=== PATIENT | male | born 1970 | race Caucasian/White ===

== ENCOUNTER → 2017-12-02 12:14 | Outpatient (CLI) | payer BC, SELFPAY ==
[2017-12-02 14:14] LABS: Absolute Lymphocyte Count 1.85 X10^3/ul (0.83-4.51); Absolute Neutrophil Count 3.7 X10^3/uL (2.0-7.7); Basophil# 0.03 X10^3/uL; Basophil% 0.5 % (0-1); Eosinophil# 0.08 X10^3/uL; Eosinophils% 1.3 % (0-5); Hematocrit 39.5 % (40-54); Hemoglobin 12.8 g/dl (13.0-16.5); Lymphocyte # 1.85 X10^3/ul (4.0); Lymphocyte % 30.1 % (19-41); Mean Corp Hgb Conc 32.4 g/gl (32-36); Mean Corpuscular Hgb 28.1 pg (27.0-32.0); Mean Corpuscular Volume 86.6 fL (80-94); Mean Platelet Vol. 9.1 fl (6.2-12.0); Monocyte# 0.43 X10^3/uL; Neutrophil # 3.73 X10^3/uL (2.7-7.7); Neutrophil % 60.8 % (47-70); Platelet Count 244 K/mm3 (150-450); RBC Distribution Width CV 15.2 % (11.6-14.6); RBC Distribution Width SD 48.1 fl (35.1-43.9); Red Blood Count 4.56 M/mm3 (4.6-6.2); White Blood Count 6.1 K/mm3 (4.4-11.0)
[2017-12-02 14:17] LABS: POSITIVE COUNT NO; POSITIVE DIFFERENTIAL NO; POSITIVE MORPHOLOGY NO
[2017-12-02 14:29] LABS: Anion Gap 5 (5-15); BUN 15 mg/dL (7-18); BUN/Creat Ratio 15.6 RATIO (10-20); Calcium,Total 8.9 mg/dL (8.5-10.1); Chloride 106 mmol/L (98-107); Cholesterol 191 mg/dL (200); Creatinine, Serum 0.96 mg/dL (0.70-1.30); EST Glomerular Filtration Rate 89 mL/min (>60); Est Glom Filt Rate - Afr Amer 108 mL/min (>60); Glucose 84 mg/dL (74-106); High Density Lipoprotein 35 mg/dL; Potassium 3.8 mmol/L (3.5-5.1); Sodium Level 139 mmol/L (136-145); Triglycerides 296 mg/dL; Very Low Density Lipoprotein 59 mg/dL (5-40)
[2017-12-02 14:37] LABS: Hemoglobin A1c 6.1 % (4.2-6.3)
== END ==
PROVIDERS: Family Provider Family Medicine; PCP Family Medicine; Visit Provider Family Medicine
DX: E11.9 Type 2 diabetes mellitus without complications (principal)
CPT/HCPCS: 36415; 80048; 80061; 83036; 85025

== ENCOUNTER → 2018-03-07 11:41 | Outpatient (CLI) | payer BC, SELFPAY ==
--- NOTE | 2018-03-07 11:59 | RAD_ITS ---
STUDY: X-RAY - LUMBAR SPINE REASON FOR EXAM: Male, 48 years old. Low back pain. No known injury. TECHNIQUE: 5 view(s) of the lumbar spine were obtained including oblique views. COMPARISON: None FINDINGS: There is straightening of the normal lumbar lordosis. There is no substantial scoliosis. There is a normal alignment of the vertebrae. Spondylosis at the L3-L4 and L4-L5 levels. Moderate degree of disc space narrowing at the L3-L4 and L4-L5 levels. The soft tissue structures are unremarkable. RAD/L/S Spine Min 4 Views IMPRESSION: Degenerative changes of the spine, as detailed above. Electronically Signed: Jas Parry MD at 12:56 EDT Tel [phone], Service support ,
== END ==
PROVIDERS: Family Provider Family Medicine; PCP Family Medicine; Visit Provider Family Medicine
DX: M54.5 Low back pain (principal)
CPT/HCPCS: 72110

== ENCOUNTER → 2018-03-19 11:13 | Outpatient (CLI) | payer BC, SELFPAY ==
--- NOTE | 2018-03-19 11:21 | MRI_ITS ---
STUDY: MRI LUMBAR SPINE WITHOUT CONTRAST REASON FOR EXAM: Male, 48 years old. lumbar disc space narrowing, low back pain that radiates down R leg x 3 weeks TECHNIQUE: Standardized fat and water weighted pulse sequences were obtained in the sagittal and axial planes. COMPARISON: None FINDINGS: T12-L1: There is minimal displaced narrowing and endplate spondylosis. There is no significant disc herniation, spinal canal or foramina stenosis. Normal lumbar lordosis. There is no substantial scoliosis. Normal conus medullaris that terminates at the L2/3. L1-2: There is minimal displaced narrowing and endplate spondylosis. There is no significant disc herniation, spinal canal or foramina stenosis. L2-3: There is minimal displaced narrowing and endplate spondylosis. There is no significant disc herniation, spinal canal or foramina stenosis. L3-4: There is moderate disc space narrowing and endplate spondylosis. There is a mild disc bulge and facet arthropathy without significant central stenosis. There is mild bilateral foraminal stenosis. L4-5: There is moderate narrowing and endplate spondylosis. There is a moderate disc bulge and facet. Mild central canal and mild bilateral foraminal stenosis. L5-S1: There is moderate disc space narrowing and endplate spondylosis. There is a mild disc bulge asymmetric to the right. Additionally there is superiorly directed right paracentral extrusion (6 x 8 x 14mm) with severe right lateral recess narrowing. There is mild central canal stenosis. There is moderate right and mild left foraminal stenosis. There is mild facet arthropathy. Normal visualized sacral ala. Normal visualized paraspinous soft tissue structures. MRI/Spine Lumbar (Routine) IMPRESSION: L5/S1: Right extrusion with severe right lateral recess narrowing. There is moderate right foraminal stenosis Electronically Signed: Janneth Freeman MD at 10:40 EDT Tel , Service support ,
== END ==
PROVIDERS: Family Provider Family Medicine; PCP Family Medicine; Visit Provider Family Medicine
DX: M51.36 Other intervertebral disc degeneration, lumbar region (principal)
CPT/HCPCS: 72148

== ENCOUNTER 2018-03-21 07:30 | Outpatient (RCR) | payer BC, SELFPAY ==
--- NOTE | 2018-03-18 13:23 | HP.PTEVAL_ITS ---
Patient's Visit Information CHRISTIANO WILLARD is a 48 year old M referred to Physical Therapy by Dave Diaz with a diagnosis of Low back pain. Date of Evaluation: 03/14/18 Physical Therapist: Rafael Casey PT, - Visit Plan Frequency: 2x /Week Duration: 4 Weeks Plan: Flexibility to hamstrings,DLS focus neutral postion, sciatic neural glides. general lumbar ROM program. If radicular symptoms worsen, perform MDT assessment again. Modalities prn. - Subjective Subjective: This 48 y/o male presents to physical therapy with LBP.Pt reports a long history of LBP but has worsened about 3 weeks ago when he was bending over. He reports symptoms were in the entire posterior R LE at the start. Now he is reporting symptoms in the R buttocks and posterior knee. He denies any LBP currently. He denies any injection or surgery to the low back or leg. He is just finishing a prednisone prescription now and this has helped. He does report n/t in foot and toes, denies bowel/bladder incontinence, weakness, or balance issues. AGGREVATING FACTORS: bending or lifting wrong. EASING FACTORS: medications. 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 PALAPTION:unreamrkable. GAIT: normal cadance reciprocal pattern. NEURO: dermatome intact, L3/S1 DTR 1+, myotomes intact. ROM: lumbar flexion 50%, extension 75%, R LF 50%, L LF 75%. FLEXIBILITY: hamstrings severe inflexibility. MMT: quads/hams/hip/ankle 5/5. SYMMTRIES : align - Special Tests L/S Slump test left side: Negative L/S Slump test right side: Positive L/S Left Straight Leg Raise: Negative L/S Right Straight Leg Raise: Positive Lumbar Standing: Flexion - Mechanical Response: No effect Lumbar Standing: Flexion - Symptoms During Testing: Produces Lumbar Standing: Flexion - Symptoms After Testing: Worse Lumbar Standing: Extension - Mechanical Response: No effect Lumbar Standing: Extension - Symptoms During Testing: Produces Lumbar Standing: Extension - Symptoms After Testing: Worse Lumbar Lying: Extension - Mechanical Response: No effect Lumbar Lying: Extension - Symptoms During Testing: No effect Lumbar Lying: Extension - Symptoms After Testing: No effect Comments:: Unable to perform REIL w/ R SG component - Goals Goal 1:: Pt will demonstrate increased lumbar ROM. Goal Time Frame: 2-4 Weeks Goal 2:: Pt will demon correct posture in clinic without VC's. Goal Time Frame: 2-4 Weeks Goal 3:: Pt will be independent with HEP to sustain gains made in the clinic. Goal Time Frame: 2-4 Weeks Goal 4:: Patient return to function of recovery for ADL'S Goal Time Frame: 2-4 Weeks Goal 5:: Patient be d/c to prophalaxis Goal Time Frame: 4-6 Weeks - Rehabilitation Potential Physical Therapy Diagnosis: Pt is 48 y/o male with referral for low back pain. This is an acute on chronic condition. He did not appear to have a directional preference during exam. His symptoms are consistent with a postero-lateral derangement with ANR. He has activity limitations that include decreased standing and sitting tolerance. This affects his participation with work related activities. Pt will benefit from skilled PT to address the mentioned impairments to maximize functional potential. Rehabilitation Potential: Good - Anticipated Interventions Patient/Client Instruction: Educate patient on: Condition, Plan of Care For the Purpose of:: To decrease pain, To increase ROM, To improve muscle performance and motor function, To improve ability to perform ADL's, To increase tolerance to activity/condition/position, To improve ability of physical actions for home/community/work/leisure, To improve health of tissue, To decrease soft tissue restriction, To increase flexibility/ROM, To improve self management, To improve ability to perform tasks related to life management Therapeutic Exercise to Include: Strength training, Endurance training, Body mechanics, Postural training, Flexibilty training, Passive ROM, Active ROM, Dynamic Lumbar Stabilization For the Purpose of:: To decrease pain, To increase ROM, To improve muscle performance and motor function, To increase tolerance to activity/condition/ position, To improve performance and independence with ADL's, To improve ability of physical actions for home/community/work/leisure, To improve health of tissue, To decrease soft tissue restriction, To increase flexibility/ROM, To prevent re-injury, To improve ability to perform tasks related to life management TENS: Yes IF ES: Yes Ultrasound (thermal/non thermal): Yes For the Purpose of:: To decrease pain, To increase ROM, To improve nutrient delivery to tissue, To increase oxygenation perfusion, To improve health of tissue, To decrease soft tissue restriction Thank you for the opportunity to evaluate your patient. For Medicare and Medicare HMO plans, please review the plan of care and approve it. It will need to be FAXED BACK to us at [phone] for Medicare purposes. Please let me know if there are questions or concerns regarding this plan of care. Physician Signature: Date:
--- NOTE | 2018-05-14 15:54 | HP.PT.NRP ---
HP - Discharge Summary (1) - Patient Information CHRISTIANO WILLARD was seen in my office for initial evaluation on 03/14/18. The following Plan of Care was established for this patient: Initial Frequency: 2x /Week Initial Duration: 4 Weeks - Anticipated Interventions Patient/Client Instruction: Educate patient on: Condition, Plan of Care For the Purpose of:: To decrease pain, To increase ROM, To improve muscle performance and motor function, To improve ability to perform ADL's, To increase tolerance to activity/condition/position, To improve ability of physical actions for home/community/work/leisure, To improve health of tissue, To decrease soft tissue restriction, To increase flexibility/ROM, To improve self management, To improve ability to perform tasks related to life management Therapeutic Exercise to Include: Strength training, Endurance training, Body mechanics, Postural training, Flexibilty training, Passive ROM, Active ROM, Dynamic Lumbar Stabilization For the Purpose of:: To decrease pain, To increase ROM, To improve muscle performance and motor function, To increase tolerance to activity/condition/position, To improve performance and independence with ADL's, To improve ability of physical actions for home/community/work/leisure, To improve health of tissue, To decrease soft tissue restriction, To increase flexibility/ROM, To prevent re-injury, To improve ability to perform tasks related to life management TENS: Yes IF ES: Yes Ultrasound (thermal/non thermal): Yes For the Purpose of:: To decrease pain, To increase ROM, To improve nutrient delivery to tissue, To increase oxygenation perfusion, To improve health of tissue, To decrease soft tissue restriction This patient was last seen in our office 03/21/18. Pertinent comments regarding their Physical therapy will appear below: Patient seen for PT for low back pain for interventions with DLS,POSTURE,P for 3 visits then patient left [place],thus is d/c after 3visits At this point I will be discontinuing this patient from physical therapy. I would be happy to see this patient again in the future if found appropriate by the physician. Thank you! Rafael Casey, PT,
== END 2018-03-21 19:00 | disposition home or self-care (01) ==
LOC: PT 07:30
PROVIDERS: Family Provider Family Medicine; PCP Family Medicine; Visit Provider Family Medicine
DX: M54.5 Low back pain (principal)
CPT/HCPCS: 97110; 97162

== ENCOUNTER 2018-08-01 13:12 | Emergency (ER) | payer BC, SELFPAY ==
[2018-08-01 13:14] VITALS: BP 163/87; PULSE 76; RESP 18; TEMP 36.6; O2SAT 98; BMI 30.4
--- NOTE | 2018-08-01 14:01 | CT_ITS ---
STUDY: CT BRAIN WITHOUT CONTRAST REASON FOR EXAM: Male, 48 years old. 5 hour history of dizziness and nausea. RADIATION DOSAGE (If Supplied By Facility): CTDIvol = ( 60.81 ) mGy, DLP = ( 1021.47 ) mGycm TECHNIQUE: Transaxial CT imaging of the brain was performed without administration of intravenous contrast material. Individualized dose optimization techniques were used for this CT. COMPARISON: None. FINDINGS: Normal soft tissue structures. Normal calvarium. Normal size ventricles and extra-axial spaces for the patient's age. Normal white matter tracts of the cerebral hemispheres. Normal basal ganglia and thalami. Normal brainstem. Normal cerebellum. There is no intracranial hemorrhage. There are no findings of an acute ischemic infarction. Normal visualized paranasal sinuses. CT/Brain/Head without Contrast IMPRESSION: Normal unenhanced CT scan of the brain. Electronically Signed: Jas Parry MD at 15:26 EDT Tel [phone], Service support ,
--- NOTE | 2018-08-01 14:01 | EKG12_ITS ---
Test Reason : Blood Pressure : / mmHG Vent. Rate : 068 BPM Atrial Rate : 068 BPM P-R Int : 168 ms QRS Dur : 102 ms QT Int : 420 ms P-R-T Axes : 069 042 030 degrees QTc Int : 446 ms Normal sinus rhythm Normal ECG Confirmed by ISIS LIVE ([id number]), editor farm journal SIXTO HERNANDEZ ([id number]) on 08/05/2018 8:30:18 AM Referred By: FUAD Confirmed By:ISIS LIVE
[2018-08-01 14:33] LABS: Absolute Lymphocyte Count 1.62 X10^3/ul (0.83-4.51); Absolute Neutrophil Count 5.3 X10^3/uL (2.0-7.7); Basophil# 0.02 X10^3/uL; Basophil% 0.3 % (0-1); Eosinophil# 0.11 X10^3/uL; Eosinophils% 1.5 % (0-5); Hematocrit 37.7 % (40-54); Hemoglobin 12.4 g/dl (13.0-16.5); Lymphocyte # 1.62 X10^3/ul (4.0); Lymphocyte % 21.5 % (19-41); Mean Corp Hgb Conc 32.9 g/gl (32-36); Mean Corpuscular Hgb 29.1 pg (27.0-32.0); Mean Corpuscular Volume 88.5 fL (80-94); Mean Platelet Vol. 8.9 fl (6.2-12.0); Monocyte# 0.46 X10^3/uL; Monocyte% 6.1 % (0-10); Neutrophil % 70.2 % (47-70); Platelet Count 221 K/mm3 (150-450); RBC Distribution Width CV 14.9 % (11.6-14.6); RBC Distribution Width SD 47.6 fl (35.1-43.9); Red Blood Count 4.26 M/mm3 (4.6-6.2); White Blood Count 7.5 K/mm3 (4.4-11.0)
[2018-08-01 14:34] LABS: POSITIVE COUNT NO; POSITIVE DIFFERENTIAL NO; POSITIVE MORPHOLOGY NO
[2018-08-01 14:49] LABS: ALB/GLOB Ratio 0.9 RATIO (0.9-2.4); AST(SGOT) 23 U/L (15-37); Alanine Aminotransfer ALT/SGPT 40 U/L (16-61); Albumin, Serum 3.5 g/dL (3.2-5.0); Alkaline Phosphatase 58 U/L (45-117); Anion Gap 5 (5-15); BUN 14 mg/dL (7-18); BUN/Creat Ratio 13.5 RATIO (10-20); Calcium,Total 8.6 mg/dL (8.5-10.1); Chloride 106 mmol/L (98-107); Creatinine, Serum 1.04 mg/dL (0.70-1.30); EST Glomerular Filtration Rate 82 mL/min (>60); Est Glom Filt Rate - Afr Amer 99 mL/min (>60); Estimated Creatinine Clearance 85.87 ml/min; Globulin 3.9 g/dL (2.2-4.2); Glucose 102 mg/dL (74-106); Potassium 3.9 mmol/L (3.5-5.1); Protein, Total 7.4 g/dL (6.4-8.2); Sodium Level 141 mmol/L (136-145)
[2018-08-01 15:19] VITALS: BP 135/75; PULSE 74; RESP 17; O2SAT 100
[2018-08-01] MEDS: Ondansetron 4 MG/2 ML Vial IV (15:20)
[2018-08-01] MEDS: Meclizine HCl 25 MG Tablet PO ×2 (15:20→16:35)
[2018-08-01] MEDS: 0.9% Normal Saline 1,000 ML 1000 ML IV (15:20)
--- NOTE | 2018-08-01 15:49 | ED.DCSUM_ITS ---
- ER Visit Summary Date of Service: 08/01/18 Chief Complaint: Dizziness History of Present Illness: The patient is a 48 M who presents with dizziness that began today. Patient describes as feeling off balance and a spinning sensation. Patient states it is worse when he moves his head and changes position. Patient admits to some blurred vision with this. Patient denies any hearing changes or ear pain. Patient denies any headaches. Patient admits to some nausea but denies any vomiting. Patient denies any paresthesias or weakness. Patient states he was having difficulty walking due to the dizziness. Physical Examination: Vital signs are stable. Patient is afebrile. Patient is in no acute distress. Pupils are equal, round, reactive to light bilateral. Extraocular muscles are intact. There is nystagmus with right lateral gaze. Tympanic membranes are clear bilaterally. Neck is supple. Trachea is midline. There is no JVD noted. Heart was regular rate and rhythm. Lungs are clear and equal bilaterally. There is good respiratory effort noted. Abdomen is soft. Bowel sounds are normal. There is no tenderness. Cranial nerves II through XII are intact. There are no focal motor or sensory deficits noted. The remaining physical exam is within normal limits. Test Results: CT scan of the brain was obtained and was normal. EKG showed normal sinus rhythm with a rate of 68. There are no acute ST or T wave changes. This was unchanged compared to previous EKG dated 07/16/2006. CBC and basic metabolic profile were essentially within normal limits. Emergency Department Course and Treatment: Patient was given IV fluids, Zofran, and meclizine. Patient felt better on reevaluation. Patient was in the process of being discharged when he sat up and felt dizzy again. Patient was given a re peat dose of meclizine. Patient was given a prescription for meclizine. Patient was instructed to follow-up with his primary care physician in 5-7 days. Patient understood and was agreeable with the plan. All questions were answered. Disposition: Discharge home Impression: Vertigo This note was generated with [employer] software. It may contain incorrect words, spelling, and punctuation that were not noted in review of the chart prior to signing ED Disposition - Plan for ED Patient: Disposition: Home or Assisted Living Chief Complaint: Dizziness Diagnosis: Vertigo Instructions: ED Vertigo Unspecified Prescriptions: Meclizine HCl 25 mg PO Q8H PRN PRN #20 tab PRN Reason: Dizziness Referrals: Dave Diaz MD [Primary Care Provider] -
--- NOTE | 2018-08-01 16:00 | ED.RN ---
pt sat up felt dizzy. observing.
[2018-08-01 17:12] VITALS: RESP 18
== END 2018-08-01 16:39 | disposition home or self-care (01) ==
PROVIDERS: Emergency Provider Emergency Medicine; Family Provider Family Medicine; PCP Family Medicine
DX: R42 Dizziness and giddiness (principal); I10 Essential (primary) hypertension; E11.9 Type 2 diabetes mellitus without complications; E66.9 Obesity, unspecified; Z68.30 Body mass index [BMI] 30.0-30.9, adult; Z79.84 Long term (current) use of oral hypoglycemic drugs; Z79.899 Other long term (current) drug therapy
CPT/HCPCS: 70450; 80053; 84484; 85025; 93005; 96361; 96374; 99285; J7030; A4216; J2405

== ENCOUNTER → 2019-12-10 11:19 | Outpatient (CLI) | payer BC, SELFPAY ==
[2019-12-10 15:42] LABS: Absolute Lymphocyte Count 1.82 X10^3/uL (0.83-4.51); Absolute Neutrophil Count 4.8 X10^3/uL (2.0-7.7); Basophil# 0.05 X10^3/uL; Basophil% 0.7 % (0-1); Eosinophils% 1.4 % (0-5); Hematocrit 42.8 % (40-54); Hemoglobin 13.5 g/dL (13.0-16.5); Lymphocyte # 1.82 X10^3/ul (4.0); Lymphocyte % 24.9 % (19-41); Mean Corp Hgb Conc 31.5 g/dL (32-36); Mean Corpuscular Hgb 28.8 pg (27.0-32.0); Mean Corpuscular Volume 91.3 fL (80-94); Mean Platelet Vol. 9.2 fl (6.2-12.0); Monocyte# 0.54 X10^3/uL; Monocyte% 7.4 % (0-10); NRBC Flagged by Analyzer 0 % (0-5); Neutrophil # 4.77 X10^3/uL (2.7-7.7); Neutrophil % 65.2 % (47-70); Platelet Count 298 K/mm3 (150-450); RBC Distribution Width SD 53.3 fl (35.1-43.9); Red Blood Count 4.69 M/mm3 (4.6-6.2); White Blood Count 7.3 K/mm3 (4.4-11.0)
[2019-12-10 16:05] LABS: CRP 6.22 mg/L (0.0-3.0)
[2019-12-10 16:07] LABS: Erythrocyte Sedimentation Rate 13 mm/hr (0-15)
[2019-12-10 16:15] LABS: D-Dimer Quantitative (DVT/PE) <= 0.27 FEU/ug/m (0.27-0.49)
== END ==
PROVIDERS: PCP Family Medicine; Referring Provider Family Medicine; Visit Provider Family Medicine
DX: M79.606 Pain in leg, unspecified (principal)
CPT/HCPCS: 36415; 85025; 85379; 85652; 86140

== ENCOUNTER → 2019-12-25 12:56 | Outpatient (CLI) | payer BC, SELFPAY ==
--- NOTE | 2019-12-25 12:58 | ART_ITS ---
Reason For Study: Left leg pain Procedure A bilateral lower extremity continuous wave Doppler with analog waveform analysis and ankle brachial indexes. Left Segmental Pressures Left brachial= 149mmHg. Left posterior tibial artery = 194mmHg. Left dorsalis pedis artery = 171mmHg. Left digit = 165 mmHg. The left dorsalis pedis waveforms are triphasic. The left posterior tibial artery waveforms are triphasic. Right Segmental Pressures Right brachial= 152mmHg. Right posterior tibial artery = 203mmHg. Right dorsalis pedis artery = 196mmHg. Right digit = 165 mmHg. The right dorsalis pedis waveforms are triphasic. The right posterior tibial artery waveforms are triphasic. Indices The right ankle brachial index by the dorsalis pedis is 1.29. The right ankle brachial index by the posterior tibial artery is 1.34. The right digital-brachial index is 1.09. The left ankle brachial index by the dorsalis pedis is 1.13. The left ankle brachial index by the posterior tibial artery is 1.28. The left digital-brachial index is 1.09. Interpretation Summary Triphasic Doppler waveforms are noted at ankle level bilaterally. Resting ankle-brachial indices are normal bilaterally. Digital-brachial indices are normal bilaterally. There is no evidence of significant arterial occlusive disease in the lower extremities bilaterally. Ordering Physician: Dave Diaz Referring Physician: Dave Diaz Performed By: Maritza Rodgers RVT
== END ==
PROVIDERS: PCP Family Medicine; Referring Provider Family Medicine; Visit Provider Family Medicine
DX: M79.606 Pain in leg, unspecified (principal)
CPT/HCPCS: 93922

== ENCOUNTER → 2020-08-05 08:24 | Outpatient (CLI) | payer BC, SELFPAY ==
[2020-08-05 10:26] LABS: Anion Gap 4 (5-15); BUN 19 mg/dL (7-18); BUN/Creat Ratio 16.8 RATIO (10-20); Calcium,Total 9.2 mg/dL (8.5-10.1); Chloride 108 mmol/L (98-107); Creatinine, Serum 1.13 mg/dL (0.70-1.30); EST Glomerular Filtration Rate 74 mL/min (>60); Est Glom Filt Rate - Afr Amer 89 mL/min (>60); Glucose 143 mg/dL (74-106); Potassium 4.4 mmol/L (3.5-5.1); Sodium Level 140 mmol/L (136-145); Thyroid Stim Hormone (TSH) 1.98 uIU/mL (0.358-3.74)
== END ==
PROVIDERS: PCP Family Medicine; Referring Provider Family Medicine; Visit Provider Family Medicine
DX: I10 Essential (primary) hypertension (principal); E66.9 Obesity, unspecified
CPT/HCPCS: 36415; 80048; 84403; 84443

== ENCOUNTER → 2020-08-19 08:16 | Outpatient (CLI) | payer BC, SELFPAY | PROVIDERS: PCP Family Medicine; Referring Provider Family Medicine; Visit Provider Family Medicine | DX: E66.9 Obesity, unspecified (principal) | CPT/HCPCS: 36415; 84403 ==

== ENCOUNTER 2020-12-16 08:00 | Outpatient (RCR) | payer BC, SELFPAY ==
[2020-12-20] MEDS: COVID-19 VACC, MRNA(PFIZER)/PF 30 MCG/0.3 ML SYRINGE IM (13:03)
[2021-01-10] MEDS: COVID-19 VACC, MRNA(PFIZER)/PF 30 MCG/0.3 ML SYRINGE IM (12:59)
== END 2021-03-14 23:59 ==
LOC: IMMUN 08:00
PROVIDERS: PCP Family Medicine; Referring Provider Family Medicine; Visit Provider Family Medicine
DX: Z23 Encounter for immunization (principal)
CPT/HCPCS: 0001A; 0002A; 91300

== ENCOUNTER 2021-07-25 19:32 | Emergency (ER) | payer BC, SELFPAY ==
[2021-07-25 19:34] VITALS: BP 198/96; PULSE 89; RESP 18; TEMP 36.1; O2SAT 95; BMI 42.0
[2021-07-25 20:58] LABS: Absolute Lymphocyte Count 1.51 X10^3/uL (0.83-4.51); Absolute Neutrophil Count 5.9 X10^3/uL (2.0-7.7); Basophil# 0.05 X10^3/uL; Basophil% 0.6 % (0-1); Eosinophil# 0.06 X10^3/uL; Eosinophils% 0.7 % (0-5); Hematocrit 39.5 % (40-54); Hemoglobin 12.8 g/dL (13.0-16.5); Lymphocyte # 1.51 X10^3/ul (0.83-4.51); Lymphocyte % 18.3 % (19-41); Mean Corp Hgb Conc 32.4 g/dL (32-36); Mean Corpuscular Hgb 28.3 pg (27.0-32.0); Mean Corpuscular Volume 87.2 fL (80-94); Monocyte# 0.64 X10^3/uL; Monocyte% 7.8 % (0-10); NRBC Flagged by Analyzer 0 % (0-5); Neutrophil % 71.7 % (47-70); Platelet Count 258 K/mm3 (150-450); RBC Distribution Width CV 14.6 % (11.6-14.6); RBC Distribution Width SD 46.9 fl (35.1-43.9); Red Blood Count 4.53 M/mm3 (4.6-6.2); White Blood Count 8.2 K/mm3 (4.4-11.0)
[2021-07-25 21:20] LABS: Anion Gap 9 (5-15); BUN 18 mg/dL (7-18); BUN/Creat Ratio 18.6 RATIO (10-20); Calcium,Total 8.9 mg/dL (8.5-10.1); Chloride 103 mmol/L (98-107); Creatinine, Serum 0.97 mg/dL (0.70-1.30); EST Glomerular Filtration Rate 88 mL/min (>60); Est Glom Filt Rate - Afr Amer 106 mL/min (>60); Estimated Creatinine Clearance 92.12 ml/min; Glucose 168 mg/dL (74-106); Potassium 3.5 mmol/L (3.5-5.1); Sodium Level 138 mmol/L (136-145)
[2021-07-25 22:06] VITALS: BP 117/101; PULSE 80; RESP 17; O2SAT 97
[2021-07-25] MEDS: diazePAM 5 MG Tablet PO (22:33)
[2021-07-25] MEDS: 0.9% Normal Saline 1,000 ML 999 ML IV (22:34)
[2021-07-25] MEDS: Ondansetron 4 MG/2 ML Vial IV (22:44)
[2021-07-26] VITALS: BP 147/93; PULSE 70; RESP 16; O2SAT 92
--- NOTE | 2021-07-26 00:16 | EDS_ITS ---
HPI History of Present Illness Chief Complaint: Nausea/Vomiting Narrative Narrative: Patient is a 51-year-old male who states that he was at home today when he began to have a sense of dizziness which he describes as more of a spinning sensation. He reports that when this occurred he had multiple bouts of vomiting. He reports that if he closes eyes and help still the symptoms resolve. However whenever he began to walk or move he will have repeat symptoms. He states he does have a remote history of vertigo and this feels similar nature but as he cannot get the symptoms under control presents to the ER for evaluation [facility] Medical History no medical history Home Medications gabapentin 300 mg PO DAILY 08/01/18 [History Last Taken Unknown] lisinopril 5 mg PO DAILY 08/01/18 [History Last Taken Unknown] meclizine 25 mg PO Q8H PRN PRN #20 tab 08/01/18 [Rx Last Taken Unknown] metformin 500 mg PO DAILY 08/01/18 [History Last Taken Unknown] simvastatin 10 mg PO DAILY 08/01/18 [History Last Taken Unknown] diazepam [Valium] 5 mg PO TID PRN #15 tab 07/26/21 [Rx Last Taken Unknown] ondansetron HCl [Zofran] 4 mg PO Q8H PRN #21 tab 07/26/21 [Rx Last Taken Unknown] Allergy/AdvReac Type Severity Reaction Status Date / Time Penicillins [PCN] Allergy Hives Verified 07/25/21 19:35 Family History no significant family his Surgical History no surgical history Social History Smoking Status: Never smoker [facility] ED Constitutional Constitutional ED: Denies chills or fever(s) Eyes Eyes: Reports change in vision ENT ENT ED: Denies sore throat Cardiovascular Cardiovascular: Denies chest pain Respiratory/Chest Respiratory/Chest: Denies cough or dyspnea Gastrointestinal Gastrointestinal: Reports nausea and vomiting; Denies abdominal pain or diarrhea Genitourinary Genitourinary ED: Denies dysuria Musculoskeletal Musculoskeletal: Denies myalgias Integumentary Denies rash Neurologic Neurologic: Reports other Details: Positive dizziness ; Denies headache(s) Hematologic/Lymphatic Hematologic/Lymphatic: Denies easy bleeding or easy bruising EXAM Physical Exam Const Vital Signs: 07/25/21 19:34 07/25/21 22:06 07/26/21 00:00 Temperature 96.9 F L Temperature Source Temporal Pulse Rate 89 80 70 Respiratory Rate 18 17 16 Blood Pressure 198/96 H 117/101 H 147/93 H Blood Pressure Mean 130 106 111 Pulse Ox 95 97 92 Oxygen Delivery Method Room Air Room Air Room Air Positive well nourished and well developed General Appearance ED: well developed HEENT Reports TM's clear and moist mucous membranes Tympanic Membrane ED: Yes TM's clear Eyes PERRL and EOMs intact bilaterally Neck supple Neck Narrative: No meningeal signs Resp normal respiratory effort and clear to auscultation bilaterally Cardio regular rate and regular rhythm GI non-tender, non-distended and no masses Auscultation: normoactive bowel sounds Palpation: soft Extremity normal to inspection Neuro oriented x3 and CN's II-XII intact bilaterally Neuro Narrative: There is mild horizontal nystagmus noted with positive Hallpike Lela exam. Otherwise cranial nerves II through XII are grossly intact with no focal neurologic deficit. No pronator drift no dysmetria no truncal ataxia Sensorium / Orientation: alert Motor Exam: strength 5/5 throughout Psych mental status grossly normal Skin no rashes or lesions noted MDM MDM MDM Narrative Medical decision making narrative: Patient presented to the ER with a nonfocal neuro exam and history and exam findings consistent with peripheral vertigo. We discussed a possible head CT but patient states he had this at his last bout of vertigo and this was normal and therefore does not want a repeat CT obtained. Patient's blood work revealed no clinically significant finding and after IV hydration Zofran and Valium he reported feeling better, patient was ambulated and can walk with a steady gait and therefore be discharged at this time. Lab Data Attestation: I reviewed the patient's lab results. Labs: Laboratory Results - last 24 hr 07/25/21 07/25/21 20:34 20:34 WBC 8.2 RBC 4.53 L Hgb 12.8 L Hct 39.5 L MCV 87.2 MCH 28.3 MCHC 32.4 RDW Std Deviation 46.9 H RDW Coeff of Maninder 14.6 Plt Count 258 MPV 9.0 Immature Gran % (Auto) 0.900 Neut % (Auto) 71.7 H Lymph % (Auto) 18.3 L Karnes % (Auto) 7.8 Eos % (Auto) 0.7 Baso % (Auto) 0.6 Absolute Neuts (auto) 5.9 Absolute Lymphs (auto) 1.51 Nucleated RBC % 0 Sodium 138 Potassium 3.5 Chloride 103 Carbon Dioxide 26.0 Anion Gap 9 BUN 18 Creatinine 0.97 Estim Creat Clear Calc 92.12 Est GFR (MDRD) Af Amer 106 Est GFR (MDRD) Non-Af 88 BUN/Creatinine Ratio 18.6 Glucose 168 H Calcium 8.9 Discharge Plan Triage Chief Complaint: Nausea/Vomiting ED Provider: Chevy Moreno Dx/Rx/DC Orders Clinical Impression: Peripheral vertigo, unspecified Prescriptions: New ondansetron HCl [Zofran] 4 mg tablet 4 mg PO Q8H PRN (Reason: nausea and vomiting) Qty: 21 RF: 0 diazepam [Valium] 5 mg tablet 5 mg PO TID PRN (Reason: dizziness or vertigo) Qty: 15 RF: 0 No Action metformin 500 MG tablet 500 mg PO DAILY RF: 0 simvastatin 10 MG tablet 10 mg PO DAILY RF: 0 gabapentin 300 MG capsule 300 mg PO DAILY RF: 0 lisinopril 5 MG tablet 5 mg PO DAILY RF: 0 meclizine 25 MG tablet 25 mg PO Q8H PRN PRN (Reason: Dizziness) Qty: 20 RF: 0 Primary Care Provider: Dave Diaz Referrals: Dave Diaz MD [Primary Care Provider] - Disposition Disposition: Home, Self Care
== END 2021-07-26 00:34 | disposition home or self-care (01) ==
PROVIDERS: Emergency Provider Emergency Medicine; PCP Family Medicine
DX: H81.399 Other peripheral vertigo, unspecified ear (principal)
CPT/HCPCS: 80048; 85025; 96361; 96374; 99284; J7030; A4216; J2405

== ENCOUNTER → 2021-08-22 06:32 | Outpatient (CLI) | payer BC, SELFPAY ==
--- NOTE | 2021-08-22 06:35 | MRI_ITS ---
EXAM: MR HEAD WITHOUT AND WITH INTRAVENOUS CONTRAST, INTERNAL AUDITORY CANAL PROTOCOL : 1970 CLINICAL INDICATION: DIZZINESS, HEARING LOSS TECHNIQUE: Multiplanar and multisequence MR images of the internal auditory canal were obtained without and with intravenous contrast. This report was created using [employer] report generation technology. CONTRAST: IV 26ml Dotarem COMPARISON: None. FINDINGS: CRANIAL NERVES: Unremarkable. No mass. No abnormal enhancement. COCHLEA AND SEMICIRCULAR CANALS: Unremarkable. CEREBELLOPONTINE ANGLES: Unremarkable. No mass. BRAIN AND EXTRA-AXIAL SPACES: Unremarkable as visualized. No intra- or extra-axial hemorrhage. No intracranial mass or mass effect. There is preservation of the alicea/white matter interface. Posterior fossa structures are unremarkable. Ventricles are appropriate for age. No hydrocephalus. Basal cisterns are patent. No abnormal contrast enhancement. BONES/JOINTS: Unremarkable. No discrete lytic or blastic abnormalities. SINUSES: Unremarkable as visualized. Clear. MASTOID AIR CELLS: Unremarkable as visualized. Clear. ORBITS: Unremarkable as visualized. Both globes, extraocular muscles, optic nerves and retrobulbar fat appear unremarkable. MRI/Brain W/WO Contrast IMPRESSION: Negative exam. at 0822 Reported and signed by: Landon Tejada MD Electronically Signed: Landon Tejada MD at 8:21 EST Tel , Service support ,
== END ==
PROVIDERS: PCP Family Medicine; Referring Provider Otolaryngology; Visit Provider Otolaryngology
DX: R42 Dizziness and giddiness (principal); H90.3 Sensorineural hearing loss, bilateral
CPT/HCPCS: 70553; A9575

== ENCOUNTER 2022-04-11 21:22 | Observation (INO) | payer BC, SELFPAY ==
[2022-04-11 21:23] VITALS: BP 123/97; PULSE 136; RESP 14; TEMP 36.4; O2SAT 96; BMI 43.6
[2022-04-11 21:47] VITALS: BP 149/97; PULSE 133; RESP 16; O2SAT 95
--- NOTE | 2022-04-11 21:59 | EKG12_ITS ---
Test Reason : palptations Blood Pressure : / mmHG Vent. Rate : 127 BPM Atrial Rate : 308 BPM P-R Int : 000 ms QRS Dur : 092 ms QT Int : 318 ms P-R-T Axes : 000 046 042 degrees QTc Int : 462 ms Atrial flutter with variable A-V block Abnormal ECG Confirmed by NYA DEAN, JAD ([id number]), features editor GARRETT WRIGHT ([id number]) on 04/14/2022 9:33:34 AM Referred By: Horace Sifuentes Confirmed By:JAD FAY MD
[2022-04-11 22:14] LABS: Absolute Lymphocyte Count 2.35 X10^3/uL (0.83-4.51); Absolute Neutrophil Count 4.2 X10^3/uL (2.0-7.7); Basophil# 0.05 X10^3/uL; Basophil% 0.7 % (0-1); Eosinophil# 0.13 X10^3/uL; Eosinophils% 1.8 % (0-5); Hematocrit 40.7 % (40-54); Hemoglobin 13.3 g/dL (13.0-16.5); Lymphocyte # 2.35 X10^3/ul (0.83-4.51); Lymphocyte % 32.1 % (19-41); Mean Corp Hgb Conc 32.7 g/dL (32-36); Mean Corpuscular Hgb 28.8 pg (27.0-32.0); Mean Corpuscular Volume 88.1 fL (80-94); Mean Platelet Vol. 9.2 fl (6.2-12.0); Monocyte# 0.56 X10^3/uL; Monocyte% 7.7 % (0-10); NRBC Flagged by Analyzer 0 % (0-5); Neutrophil # 4.19 X10^3/uL (2.7-7.7); Neutrophil % 57.3 % (47-70); Platelet Count 270 K/mm3 (150-450); RBC Distribution Width CV 15.2 % (11.6-14.6); RBC Distribution Width SD 48.6 fl (35.1-43.9); Red Blood Count 4.62 M/mm3 (4.6-6.2); White Blood Count 7.3 K/mm3 (4.4-11.0)
[2022-04-11] MEDS: dilTIAZem 25 MG/5 ML Vial 20 MG IV BOLUS (22:21)
[2022-04-11 22:33] LABS: ALB/GLOB Ratio 0.9 RATIO (0.9-2.4); AST(SGOT) 26 U/L (15-37); Alanine Aminotransfer ALT/SGPT 36 U/L (16-61); Albumin, Serum 3.6 g/dL (3.2-5.0); Alkaline Phosphatase 61 U/L (45-117); Anion Gap 7 (5-15); BUN 18 mg/dL (7-18); BUN/Creat Ratio 16.4 RATIO (10-20); Chloride 108 mmol/L (98-107); EST Glomerular Filtration Rate 75 mL/min (>60); Est Glom Filt Rate - Afr Amer 91 mL/min (>60); Estimated Creatinine Clearance 80.34 ml/min; Globulin 3.9 g/dL (2.2-4.2); Glucose 199 mg/dL (74-106); Potassium 3.6 mmol/L (3.5-5.1); Protein, Total 7.5 g/dL (6.4-8.2); Sodium Level 142 mmol/L (136-145); Troponin-I HS 16 pg/mL (3.0-78.0)
--- NOTE | 2022-04-11 22:43 | EX.ED.DYSGE1 ---
HPI History of Present Illness Chief Complaint: Palpitations Informant: patient and spouse/S.O. Narrative Narrative: Patient presents directly ED after returning from [place] to direction of his PCP Dr. Diaz for treatment. Reported palpitations started 3 days ago at rest. The following day worsens had a near syncopal episode with exertional dyspnea. He has been having cough for 4 days. Denies fever. Denies leg swelling or cramping. Symptoms worsening where he went to the ED yesterday in [place]. Reported had atrial fibrillation/atrial flutter. He was given IV Lopressor and tried Cardizem and placed on a drip. It reported unable to control this. There is discussion of cardioversion however he declined this. He states his blood pressure was stable. He did not want to be hospitalized therefore signed out AGAINST MEDICAL ADVICE. He was placed on Cardizem 120 mg twice daily along with Eliquis twice daily. Today he is taking Cardizem 3x2 direction of his PCP as last dosing was at 4 PM along with taking his Eliquis at the same time. He returned in town literally an hour prior to arrival to the ED. Reviewing lab work on his phone normal CBC troponin and electrolytes. There was no D-dimer. Prior similar symptoms: No PFSH PFSH Medical History Diabetes HTN (hypertension) Hyperlipidemia Home Medications gabapentin 300 mg capsule 300 mg PO DAILY 08/01/18 [History Last Taken Unknown] lisinopril 5 mg tablet 5 mg PO DAILY 08/01/18 [History Last Taken Unknown] meclizine 25 mg tablet 25 mg PO Q8H PRN PRN Dizziness #20 tabs 08/01/18 [Rx Last Taken Unknown] metformin 500 mg tablet 500 mg PO DAILY 08/01/18 [History Last Taken Unknown] simvastatin 10 mg tablet 10 mg PO DAILY 08/01/18 [History Last Taken Unknown] diazepam 5 mg tablet (Valium) 5 mg PO TID PRN dizziness or vertigo #15 tabs 07/26/21 [Rx Last Taken Unknown] ondansetron HCl 4 mg tablet (Zofran) 4 mg PO Q8H PRN nausea and vomiting #21 tabs 07/26/21 [Rx Last Taken Unknown] Allergy/AdvReac Type Severity Reaction Status Date / Time Penicillins [PCN] Allergy Hives Verified 04/11/22 21:23 Social History Smoking Status: Never smoker ROS ROS ED Constitutional Constitutional ED: Denies chills, fever(s) or sweats Eyes Eyes: Denies change in vision ENT ENT ED: Denies dysphagia or sore throat Cardiovascular Cardiovascular: Reports palpitations and racing heartbeat; Denies chest pain or leg edema Respiratory/Chest Respiratory/Chest: Reports cough; Denies dyspnea or dyspnea on exertion Gastrointestinal Gastrointestinal: Denies abdominal pain, diarrhea, nausea or vomiting Genitourinary Genitourinary ED: Denies dysuria, hematuria or urinary frequency Musculoskeletal Musculoskeletal: Denies back pain, extremity pain or neck pain Integumentary Denies rash or wounds Neurologic Neurologic: Denies headache(s), paresthesias or weakness EXAM Physical Exam Const Vital Signs: 04/11/22 21:23 04/11/22 21:47 04/11/22 21:56 Temperature 97.5 F L Temperature Source Temporal Pulse Rate 136 H 133 H Respiratory Rate 14 16 Respiratory Effort Normal Blood Pressure 123/97 H 149/97 H Blood Pressure Mean 105 114 Pulse Ox 96 95 Oxygen Delivery Method Room Air Room Air 04/11/22 23:04 04/11/22 23:48 04/12/22 00:05 Temperature 98.9 F Temperature Source Temporal Pulse Rate 109 H 98 106 H Respiratory Rate 118 H 20 H 16 Respiratory Effort Blood Pressure 118/81 H 146/85 H 128/78 H Blood Pressure Mean 93 105 94 Pulse Ox 95 94 93 Oxygen Delivery Method Room Air Room Air Room Air Positive well nourished and well developed General Appearance ED: well developed and NAD HEENT Reports moist mucous membranes normocephalic and atraumatic Eyes PERRL, EOMs intact bilaterally and conjunctivae normal General Eye ED: Yes normal appearance of both eyes Neck no lymphadenopathy and supple General: Negative for tenderness Chest Wall Chest: Negative for tenderness Resp normal respiratory effort and normal air movement Effort and Inspection: symmetric chest movement; Negative for respiratory distress Cardio no murmurs Rate: tachycardic Rhythm: abnormal rhythm Peripheral Pulses: pulses 2+ throughout GI normal to inspection, nondistended, normoactive bowel sounds and non-tender Palpation: Negative for guarding or rebound tenderness present Back/Spine no CVA tenderness and no thoracic nor lumbar tenderness Extremity normal to inspection General Extremety ED: Negative for edema or tenderness General Extremity: Negative for edema Neuro oriented x3 and no sensory deficits noted Sensorium / Orientation: awake and alert Skin no rashes or lesions noted and no wounds MDM MDM MDM Narrative Medical decision making narrative: EKG A. fib with RVR. Heart rates 130s to 140s on exam. Is given IV Cardizem of 20 mg. Heart rate down to 100s. Blood pressure down in the low 100s systolic. Gentle fluids started. 5 mg/h Cardizem drip with better control blood pressure improved. Laboratory studies white count 7.3 hemoglobin 13.3 potassium 3.6. Troponin negative. He is low risk Wells criteria for PE with his recent travel and obtain a D-dimer returning negative. 1 view chest x-ray reviewed by myself shows no acute process. Heart rate much better controlled. He status post his Eliquis at 4 PM. I will discuss with hospitalist for admission. 0000: Spoke with Dr. Bates for admission. Lab Data Attestation: I reviewed the patient's lab results. Labs: Laboratory Results - last 24 hr 04/11/22 04/11/22 04/11/22 22:00 22:00 22:00 WBC 7.3 RBC 4.62 Hgb 13.3 Hct 40.7 MCV 88.1 MCH 28.8 MCHC 32.7 RDW Std Deviation 48.6 H RDW Coeff of Maninder 15.2 H Plt Count 270 MPV 9.2 Immature Gran % (Auto) 0.400 Neut % (Auto) 57.3 Lymph % (Auto) 32.1 [place] % (Auto) 7.7 Eos % (Auto) 1.8 Baso % (Auto) 0.7 Absolute Neuts (auto) 4.2 Absolute Lymphs (auto) 2.35 Nucleated RBC % 0 PT 14.3 INR 1.1 APTT 41.5 H D-Dimer Quant (PE/DVT) < 0.27 L Sodium 142 Potassium 3.6 Chloride 108 H Carbon Dioxide 27.0 Anion Gap 7 BUN 18 Creatinine 1.10 Estim Creat Clear Calc 80.34 Est GFR (MDRD) Af Amer 91 Est GFR (MDRD) Non-Af 75 BUN/Creatinine Ratio 16.4 Glucose 199 H Calcium 9.0 Total Bilirubin 0.50 AST 26 ALT 36 Alkaline Phosphatase 61 Troponin I High Sens 16 Total Protein 7.5 Albumin 3.6 Globulin 3.9 Albumin/Globulin Ratio 0.9 Radiography Chest X-Ray - ED: 1 View and Read by ED Physician Diagnostic Testing: Clinical Impression(s) from Imaging Studies Chest X-Ray 04/11/22 23:03 IMPRESSION: No radiographic evidence of acute cardiopulmonary disease. Electronically Signed: Tricia Corado MD at 0:12 EDT , EKG Initial EKG: Attestation: I personally reviewed and interpreted this EKG as follows: Comments: Atrial fibrillation, rate of 127, no ST or T wave changes. Discharge Plan Dx/Rx/DC Orders Clinical Impression: Atrial fibrillation with RVR, History of diabetes mellitus, Upper respiratory infection Disposition Disposition: Acute Care [facility]
[2022-04-11 22:44] LABS: International Normalized Ratio 1.1; Prothrombin Time (Protime)PT. 14.3 SECONDS (11.7-14.9)
[2022-04-11 22:45] LABS: Partial Thromboplast Time 41.5 Seconds (24.1-36.2)
[2022-04-11 22:47] LABS: D-Dimer Quantitative (DVT/PE) < 0.27 FEU/ug/m (0.27-0.49)
--- NOTE | 2022-04-11 23:03 | RAD_ITS ---
EXAM: XR CHEST, 1 VIEW CLINICAL INDICATION: cough TECHNIQUE: Frontal view of the chest. This report was created using [employer] report generation technology. COMPARISON: None. FINDINGS: LUNGS AND PLEURAL SPACES: Unremarkable. No consolidation or edema. No pneumothorax. No effusion. HEART: Unremarkable. Cardiac silhouette not enlarged. MEDIASTINUM: Central airways and mediastinal contour are unremarkable. BONES/JOINTS: Mild thoracic spondylosis or ligamentous ossification. SOFT TISSUES: Unremarkable. RAD/Chest 1 View (Portable) IMPRESSION: No radiographic evidence of acute cardiopulmonary disease. Electronically Signed: Tricia Corado MD at 0:12 EDT ,
[2022-04-11 23:04] VITALS: BP 118/81; PULSE 109; RESP 118; O2SAT 95
[2022-04-11] MEDS: 0.9% Normal Saline 1,000 ML 30 ML IV (23:04)
[2022-04-11 23:48] VITALS: BP 146/85; PULSE 98; RESP 20; O2SAT 94
[2022-04-12] VITALS (17 sets, daily range): BP systolic 90–147; BP diastolic 65–95; PULSE 72–121; RESP 14–22; TEMP 36.3–37.2; O2SAT 86–100; BMI 43.7
--- NOTE | 2022-04-12 00:11 | PCM.HP.STD ---
HPI - General General Date of Admission: 04/12/22 Date of Service: 04/12/22 Chief Complaint: Palpitations HPI Narrative Patient is a 52-year-old male with a significant history of obesity; hyperlipidemia; hypertension; diabetes mellitus; and rheumatoid arthritis who presents emergency department with 3-day history of persistent palpitations. His symptoms started about 3 days ago while [facility]. He went to emergency department; where he was given metoprolol and Cardizem drip. Because he and his was making plans to come back to [facility] where he lives he talked to his PCP, Dr. Diaz and patient was advised to seek further care at [place]. He was prescribed p.o. Cardizem pills and Eliquis at [facility] ED. Subsequently when patient arrived from [place] he came to [facility] ED where he was still found to be in A. fib and was started on a Cardizem drip. Associated with his symptoms is dyspnea on exertion; nonproductive cough and near syncope. [facility] Medical History Diabetes History of diabetes mellitus HTN (hypertension) Hyperlipidemia Home Medications gabapentin 300 mg capsule 300 mg PO DAILY 08/01/18 [History Last Taken Unknown] lisinopril 5 mg tablet 5 mg PO DAILY 08/01/18 [History Last Taken Unknown] meclizine 25 mg tablet 25 mg PO Q8H PRN PRN Dizziness #20 tabs 08/01/18 [Rx Last Taken Unknown] metformin 500 mg tablet 500 mg PO DAILY 08/01/18 [History Last Taken Unknown] simvastatin 10 mg tablet 10 mg PO DAILY 08/01/18 [History Last Taken Unknown] diazepam 5 mg tablet (Valium) 5 mg PO TID PRN dizziness or vertigo #15 tabs 07/26/21 [Rx Last Taken Unknown] ondansetron HCl 4 mg tablet (Zofran) 4 mg PO Q8H PRN nausea and vomiting #21 tabs 07/26/21 [Rx Last Taken Unknown] Allergy/AdvReac Type Severity Reaction Status Date / Time Penicillins [PCN] Allergy Hives Verified 04/11/22 21:23 Family History Other CVA (cerebral vascular accident) Heart disease Surgical History (Updated 04/12/22 @ 03:[address] Manish Bates MD) Hx of cataract surgery Social History Smoking Status: Never smoker ROS ROS Narrative Pertinent positives and pertinent negatives as noted in HPI. All other systems were reviewed and are negative. Vital Signs Vital Signs Vital Signs: 04/11/22 21:23 04/11/22 21:47 04/11/22 21:56 Temperature 97.5 F L Temperature Source Temporal Pulse Rate 136 H 133 H Respiratory Rate 14 16 Respiratory Effort Normal Blood Pressure 123/97 H 149/97 H Blood Pressure Mean 105 114 Pulse Ox 96 95 Oxygen Delivery Method Room Air Room Air 04/11/22 23:04 04/11/22 23:48 04/12/22 00:05 Temperature 98.9 F Temperature Source Temporal Pulse Rate 109 H 98 106 H Respiratory Rate 118 H 20 H 16 Respiratory Effort Blood Pressure 118/81 H 146/85 H 128/78 H Blood Pressure Mean 93 105 94 Pulse Ox 95 94 93 Oxygen Delivery Method Room Air Room Air Room Air Weight Weight: 134 kg Body Mass Index (BMI) 43.6 Physical Exam Narrative Physical exam: General: Well-nourished, well-developed. Head: Normocephalic, atraumatic, no tenderness Eyes: Vision is grossly intact. EOMI ENT, no trauma, moist mucous membranes, no rhinorrhea Neck: Nontender, full range of motion, no spinal tenderness, deformities, step-off CVS: Tachycardia. Irregularly irregular rate and rhythm. S1-S2 present. No murmur, gallop or rub. Respiratory : clear to auscultation bilaterally, chest wall nontender, no wheezing Abdomen: Soft, nontender, nondistended, normal bowel sounds, no masses : Deferred Back: Nontender, no CVA tenderness, no midline spinal tenderness, deformities, step-offs Extremities: Nontender full range of motion, no trauma Skin: Normal color, no trauma, abrasions Neuro: Alert, oriented, cranial nerves II through XII grossly intact. Psychiatry: Normal mood. Normal affect. Not depressed. Not anxious. Results Lab / Micro Data Result Diagrams: 04/11/22 22:00 04/11/22 22:00 Labs: Laboratory Results - last 24 hr 04/11/22 22:00: WBC 7.3, RBC 4.62, Hgb 13.3, Hct 40.7, MCV 88.1, MCH 28.8, MCHC 32.7, RDW Std Deviation 48.6 H, RDW Coeff of Maninder 15.2 H, Plt Count 270, MPV 9.2, Immature Gran % (Auto) 0.400, Neut % (Auto) 57.3, Lymph % (Auto) 32.1, Delta % (Auto) 7.7, Eos % (Auto) 1.8, Baso % (Auto) 0.7, Absolute Neuts (auto) 4.2, Absolute Lymphs (auto) 2.35, Nucleated RBC % 0 04/11/22 22:00: PT 14.3, INR 1.1, APTT 41.5 H, D-Dimer Quant (PE/DVT) < 0.27 L 04/11/22 22:00: Sodium 142, Potassium 3.6, Chloride 108 H, Carbon Dioxide 27.0, Anion Gap 7, BUN 18, Creatinine 1.10, Estim Creat Clear Calc 80.34, Est GFR (MDRD) Af Amer 91, Est GFR (MDRD) Non-Af 75, BUN/Creatinine Ratio 16.4, Glucose 199 H, Calcium 9.0, Total Bilirubin 0.50, AST 26, ALT 36, Alkaline Phosphatase 61, Troponin I High Sens 16, Total Protein 7.5, Albumin 3.6, Globulin 3.9, Albumin/Globulin Ratio 0.9 Micro: Microbiology 04/11/22 22:05 Nasal Secretion SARS-CoV-2 Antigen (Rapid) - Final Assessment & Plan Assessment/Plan (1) Atrial fibrillation with RVR: (2) History of diabetes mellitus: PLAN: Plan Atrial fibrillation with rapid ventricular response. EKG was viewed and personally interpreted. EKG showed A. fib with RVR Place on PCU on telemetry Obtain echo High [id number] 2 score. Continue Eliquis started from outside hospital ED. Cardizem drip was started emergency department and continued. Hold p.o. Cardizem recently started. Potassium on presentation was 3.8. P.o. potassium ordered. Check magnesium Review of records show that last TSH on file was on 08/05/2020. TSH at that time was 1.98. TSH ordered. Chest x-ray was visualized and independently interpreted. Chest x-ray with no acute cardiopulmonary process. Per patient's request cardiology consult placed. Diabetes mellitus Patient with hyperglycemia on presentation Monitor Accu-Cheks Correction scale insulin ordered. Hypertension On presentation blood pressure mostly within goal. With patient placed on Cardizem drip blood pressures became soft. Hold home blood pressure medication at this time. Trend blood pressure. Upper respiratory tract infection On presentation rapid COVID antigen negative. PRN Tessalon Perles ordered DVT prophylaxis Not indicated as patient is on Eliquis. Charges/Coding Visit Charges Inpatient E&M: 78712 Init Hosp L3
[2022-04-12] MEDS: Potassium Chloride Oral Tablet 20 MEQ 40 MEQ PO (03:33)
[2022-04-12 03:49] LABS: Absolute Lymphocyte Count 2.17 X10^3/uL (0.83-4.51); Absolute Neutrophil Count 3.4 X10^3/uL (2.0-7.7); Basophil# 0.05 X10^3/uL; Basophil% 0.8 % (0-1); Eosinophil# 0.16 X10^3/uL; Eosinophils% 2.5 % (0-5); Hematocrit 38.7 % (40-54); Hemoglobin 12.5 g/dL (13.0-16.5); Lymphocyte # 2.17 X10^3/ul (0.83-4.51); Mean Corp Hgb Conc 32.3 g/dL (32-36); Mean Corpuscular Hgb 28.7 pg (27.0-32.0); Mean Corpuscular Volume 88.8 fL (80-94); Mean Platelet Vol. 9.1 fl (6.2-12.0); Monocyte# 0.61 X10^3/uL; Monocyte% 9.6 % (0-10); NRBC Flagged by Analyzer 0 % (0-5); Neutrophil # 3.37 X10^3/uL (2.7-7.7); Neutrophil % 52.8 % (47-70); Platelet Count 238 K/mm3 (150-450); RBC Distribution Width SD 49.1 fl (35.1-43.9); Red Blood Count 4.36 M/mm3 (4.6-6.2); White Blood Count 6.4 K/mm3 (4.4-11.0)
[2022-04-12 04:04] LABS: Anion Gap 6 (5-15); BUN 16 mg/dL (7-18); BUN/Creat Ratio 16.5 RATIO (10-20); Calcium,Total 8.6 mg/dL (8.5-10.1); Chloride 110 mmol/L (98-107); Creatinine, Serum 0.97 mg/dL (0.70-1.30); EST Glomerular Filtration Rate 87 mL/min (>60); Est Glom Filt Rate - Afr Amer 105 mL/min (>60); Estimated Creatinine Clearance 91.11 ml/min; Glucose 130 mg/dL (74-106); Potassium 3.7 mmol/L (3.5-5.1); Sodium Level 143 mmol/L (136-145)
[2022-04-12 04:13] LABS: Thyroid Stim Hormone (TSH) 3.84 uIU/mL (0.358-3.74)
--- NOTE | 2022-04-12 05:55 | ECHOCS_ITS ---
Reason For Study: ATRIAL FIB-FLUTTER Procedure This was a 2D Doppler, Color Flow transthoracic echocardiogram. The study was technically difficult. Exam performed portable in ICU/CCU. Left Ventricle Normal left ventricle. The estimated ejection fraction is 55-60 %. Right Ventricle Normal right ventricle. Normal systolic function. Atria Normal left atrium. Normal right atrium. Mitral Valve There is mild mitral annular calcification. No mitral valve insufficiency. Tricuspid Valve Normal tricuspid valve. No tricuspid valve insufficiency. Aortic Valve Normal aortic valve. Pulmonic Valve The pulmonic valve is not well visualized. Great Vessels Normal aortic root. Pericardium/Pleural No pericardial effusion. Medication Diluted definity 2ml given slow IV push to enhance endocardial definition. MMode/2D Measurements & Calculations LVIDd: 4.9 cm IVSd: 1.0 cm Ao root diam: 3.1 cm LVIDs: 3.3 cm LVPWd: 1.0 cm RVDd: 3.8 cm FS: 32.8 % LAV(MOD-bp): 57.7 ml LVAd ap4: 34.5 cm2 SV(MOD-sp4): 74.0 ml LAV(MOD-bp) Indexed: 23.6 ml/m2 LVLd ap4: 8.6 cm LAV(MOD-sp2): 55.7 ml EDV(MOD-sp4): 111.1 ml LAV(MOD-sp4): 52.3 ml EDV(sp4-el): 117.6 ml LVAs ap4: 18.0 cm2 LVLs ap4: 7.2 cm ESV(MOD-sp4): 37.1 ml ESV(sp4-el): 38.2 ml EF(MOD-sp4): 66.6 % EF(sp4-el): 67.5 % SV(sp4-el): 79.5 ml LA A4 area: 19.9 cm2 LA dimension(2D): 3.8 cm RA A4 area: 19.9 cm2 Time Measurements MV dec time: 0.24 sec Doppler Measurements & Calculations MV E max dickson: 92.0 cm/sec Lat Peak E' Dickson: 12.5 cm/sec Med Peak E' Dickson: 9.9 cm/sec MV A max dickson: 70.5 cm/sec E/E' lat: 7.3 E/E' med: 9.3 MV E/A: 1.3 Ao V2 max: 161.6 cm/sec LV V1 max: 142.4 cm/sec PA V2 max: 171.6 cm/sec Ao max P.4 mmHg LV V1 max P.1 mmHg ECHO/Echo Complete W/ Contrast Interpretation Summary The estimated ejection fraction is 55-60 %. Normal LV systolic function No previous echo to compare Ordering Physician: Manish Bates Referring Physician: JAD ASTUDILLO Performed By: Meri Venegas RDCS
[2022-04-12 08:35] LABS: Bedside Glucose 141 mg/dL (74-106)
[2022-04-12] MEDS: dilTIAZem 60 MG CAP.SR.12H 120 MG PO (09:12)
[2022-04-12] MEDS: APIXABAN 5 MG TABLET PO (09:12)
[2022-04-12 14:01] LABS: Bedside Glucose 167 mg/dL (74-106)
--- NOTE | 2022-04-12 14:18 | CON.PCM.CA_ITS ---
Documented by User: KARLY Snow 04/12/22 14:40 Assessment & Plan Assessment/Plan (1) Atrial fibrillation with RVR: PLAN: * Patient converted to sinus rhythm on IV Cardizem. Recommend that he be transitioned over to oral Cardizem and continue with his factor Xa inhibitor. * Patient's troponin was negative. He has not had any chest discomfort. Feel that we can do a stress test on an outpatient basis. * Also encouraged patient to consider a sleep study as suspect that this could also be related to obstructive sleep apnea * Feel that it is okay for patient to be discharged home and follow-up with [facility] on an outpatient basis. (2) History of diabetes mellitus: (3) Hypertension: HPI Consult Data Date of Consult: 04/12/22 HPI Narrative HPI Narrative: CHRISTIANO WILLARD, is a 52 M who presented to [facility] ER last night with Aflutter with RVR. Patient notes that his symptoms started on April 08 while he was in [facility]. He had felt palpitations, on the he noted that his palpitations had increased then on the fifth while walking short distances he felt lightheaded and dizzy he did have a near syncopal event. When he rested he felt better. The following day he went to the emergency room at [facility]. Patient wished to follow-up with his primary care doctor at home and did not wish to be admitted at [facility]. He was discharged on Eliquis and Cardizem. He then presented to the emergency room last night after he arrived home for further evaluation. He remained in atrial flutter with RVR with a heart rate of 130. He was started on IV Cardizem. He did convert to sinus rhythm overnight. Patient states that prior to this event he had not had any notable palpitations that he is aware of. He did not have any chest pain. He does not have any concerns of lower extremity edema. He does have a history of hypertension, diabetes and obesity. [facility] Medical History Diabetes History of diabetes mellitus HTN (hypertension) Hyperlipidemia Home Medications lisinopril 5 mg tablet 10 mg PO QHS blood pressure 08/01/18 [History Last Taken 04/10/22] meclizine 25 mg tablet 25 mg PO Q8H PRN PRN Dizziness #20 tabs 08/01/18 [Rx Last Taken Unknown] metformin 500 mg tablet 500 mg PO QHS diabetes 08/01/18 [History Last Taken 04/10/22] diazepam 5 mg tablet (Valium) 5 mg PO TID PRN dizziness or vertigo #15 tabs 07/26/21 [Rx Last Taken Unknown] apixaban 5 mg tablet (Eliquis) 5 mg PO BID 30 days #60 tabs 04/12/22 [Rx Last Taken Unknown] meloxicam 15 mg tablet 15 mg PO DAILY arthritis 04/12/22 [History Last Taken 04/10/22] rosuvastatin 20 mg tablet 20 mg PO QHS cholesterol 04/12/22 [History Last Taken 04/10/22] Allergy/AdvReac Type Severity Reaction Status Date / Time Penicillins [PCN] Allergy Hives Verified 04/11/22 21:23 Family History Other CVA (cerebral vascular accident) Heart disease Surgical History Hx of cataract surgery Social History Smoking Status: Never smoker ROS Constitutional Constitutional: Denies change in weight, chills, frequent falls, headache(s) or lethargy Eyes Eyes: Denies acute decrease in peripheral vision, blurry vision or change in vision ENT HEENT: Denies dry mouth, epistaxis, headache(s), tinnitus or vertigo Cardiovascular Cardiovascular: Reports as per HPI; Denies chest pain at rest, chest pain with activity, claudication, dyspnea at rest, edema, orthopnea, orthostatic symptoms or pedal edema Respiratory/Chest Respiratory/Chest: Reports as per HPI; Denies cough, tachypnea or wheezing Gastrointestinal Gastrointestinal: Denies abdominal pain, bloating, coffee ground emesis, di arrhea, heartburn, hematemesis, hematochezia, melena or nausea Genitourinary Genitourinary: Denies hematuria Musculoskeletal Musculoskeletal: Denies myalgias, numbness or tingling Neurologic Neurologic: Denies abnormal gait, abnormal speech, memory loss, paresthesias or weakness Physical Exam Const alert, oriented x3, no apparent distress and healthy appearing Nutritional Appearance: obese HEENT normocephalic, head/scalp atraumatic, hearing grossly normal bilaterally, external ears normal, external nose normal and moist oral mucous membranes Eyes PERRL, EOMs intact bilaterally, conjunctivae normal and no scleral icterus Neck no lymphadenopathy, supple and no JVD Resp normal respiratory effort, no use of accessory muscles and clear to auscultation bilaterally Cardio regular rate, regular rhythm, S1 normal heart sound, S2 normal heart sound, no murmurs, no rub, no gallops, no clicks, no JVD and peripheral pulses 2+ throughout GI normal to inspection, nondistended, normoactive bowel sounds, soft to palpation, non-tender and non-distended Extremity normal to inspection, normal capillary refill, no clubbing, cyanosis or edema and no pedal edema Neuro oriented x3, CN's II-XII intact bilaterally, moves all extremities and no focal motor deficits Psych cooperative and affect normal Risk Stratification Risk Stratification Applicable: No Objective Data Vital Signs: Vital Signs Temp Pulse Resp BP Pulse Ox O2 Del Method O2 Flow Rate 97.9 F 84 18 147/77 H 97 Room Air 2 04/12/22 10:00 04/12/22 12:00 04/12/22 10:00 04/12/22 10:00 04/12/22 10:00 04/12/22 10:00 04/12/22 07:00 Oxygen Flow Rate (L/min) 2 Oxygen Delivery Method Room Air Weight: 296 lb 1.293 oz Body Mass Index (BMI) 43.7 Intake & Output: Intake and Output for Last 24 Hours 04/10/22 04/11/22 04/12/22 23:59 23:59 23:59 Intake Total 578.92 / 578.92 Balance 578.92 / 578.92 Lab / Micro Data Result Diagrams: 04/12/22 03:43 04/12/22 03:43 Labs: Laboratory Results - last 24 hr 04/11/22 22:00: WBC 7.3, RBC 4.62, Hgb 13.3, Hct 40.7, MCV 88.1, MCH 28.8, MCHC 32.7, RDW Std Deviation 48.6 H, RDW Coeff of Maninder 15.2 H, Plt Count 270, MPV 9.2, Immature Gran % (Auto) 0.400, Neut % (Auto) 57.3, Lymph % (Auto) 32.1, Stearns % (Auto) 7.7, Eos % (Auto) 1.8, Baso % (Auto) 0.7, Absolute Neuts (auto) 4.2, Absolute Lymphs (auto) 2.35, Nucleated RBC % 0 04/11/22 22:00: PT 14.3, INR 1.1, APTT 41.5 H, D-Dimer Quant (PE/DVT) < 0.27 L 04/11/22 22:00: Sodium 142, Potassium 3.6, Chloride 108 H, Carbon Dioxide 27.0, Anion Gap 7, BUN 18, Creatinine 1.10, Estim Creat Clear Calc 80.34, Est GFR (MDRD) Af Amer 91, Est GFR (MDRD) Non-Af 75, BUN/Creatinine Ratio 16.4, Glucose 199 H, Calcium 9.0, Total Bilirubin 0.50, AST 26, ALT 36, Alkaline Phosphatase 61, Troponin I High Sens 16, Total Protein 7.5, Albumin 3.6, Globulin 3.9, Albumin/Globulin Ratio 0.9 04/12/22 03:43: WBC 6.4, RBC 4.36 L, Hgb 12.5 L, Hct 38.7 L, MCV 88.8, MCH 28.7, MCHC 32.3, RDW Std Deviation 49.1 H, RDW Coeff of Maninder 15.0 H, Plt Count 238, MPV 9.1, Immature Gran % (Auto) 0.300, Neut % (Auto) 52.8, Lymph % (Auto) 34.0, Stearns % (Auto) 9.6, Eos % (Auto) 2.5, Baso % (Auto) 0.8, Absolute Neuts (auto) 3.4, Absolute Lymphs (auto) 2.17, Nucleated RBC % 0 04/12/22 03:43: Sodium 143, Potassium 3.7, Chloride 110 H, Carbon Dioxide 27.0, Anion Gap 6, BUN 16, Creatinine 0.97, Estim Creat Clear Calc 91.11, Est GFR (MDRD) Af Amer 105, Est GFR (MDRD) Non-Af 87, BUN/Creatinine Ratio 16.5, Glucose 130 H, Calcium 8.6 04/12/22 03:43: Magnesium 2.0 04/12/22 03:43: TSH 3.84 H 04/12/22 08:11: POC Glucose 141 H 04/12/22 12:00: POC Glucose 167 H Micro: Microbiology 04/11/22 22:05 Nasal Secretion SARS-CoV-2 Antigen (Rapid) - Final Cardiology Labs/Tests 04/11/22 22:00: WBC 7.3, RBC 4.62, Hgb 13.3, Hct 40.7, MCV 88.1, MCH 28.8, MCHC 32.7, Plt Count 270, MPV 9.2, Immature Gran % (Auto) 0.400, Neut % (Auto) 57.3, Lymph % (Auto) 32.1, Stearns % (Auto) 7.7, Eos % (Auto) 1.8, Baso % (Auto) 0.7, Absolute Neuts (auto) 4.2, Nucleated RBC % 0 04/11/22 22:00: PT 14.3, INR 1.1, APTT 41.5 H, D-Dimer Quant (PE/DVT) < 0.27 L 04/11/22 22:00: Sodium 142, Potassium 3.6, Chloride 108 H, Carbon Dioxide 27.0, Anion Gap 7, BUN 18, Creatinine 1.10, Est GFR (MDRD) Af Amer 91, Est GFR (MDRD) Non-Af 75, BUN/Creatinine Ratio 16.4, Glucose 199 H, Calcium 9.0, Total Bilirubin 0.50 04/12/22 03:43: WBC 6.4, RBC 4.36 L, Hgb 12.5 L, Hct 38.7 L, MCV 88.8, MCH 28.7, MCHC 32.3, Plt Count 238, MPV 9.1, Immature Gran % (Auto) 0.300, Neut % (Auto) 52.8, Lymph % (Auto) 34.0, Stearns % (Auto) 9.6, Eos % (Auto) 2.5, Baso % (Auto) 0.8, Absolute Neuts (auto) 3.4, Nucleated RBC % 0 04/12/22 03:43: Sodium 143, Potassium 3.7, Chloride 110 H, Carbon Dioxide 27.0, Anion Gap 6, BUN 16, Creatinine 0.97, Est GFR (MDRD) Af Amer 105, Est GFR (MDRD) Non-Af 87, BUN/Creatinine Ratio 16.5, Glucose 130 H, Calcium 8.6 04/12/22 03:43: Magnesium 2.0 Radiography Diagnostic Testing: Radiology Impression Chest X-Ray 04/11/22 23:03 IMPRESSION: No radiographic evidence of acute cardiopulmonary disease. Electronically Signed: Tricia Corado MD at 0:12 EDT , Echocardiogram 04/12/22 05:55 Interpretation Summary The estimated ejection fraction is 55-60 %. Normal LV systolic function No previous echo to compare Ordering Physician: Manish Bates Referring Physician: JAD ASTUDILLO Performed By: Meri Venegas RDCS Documented by User: Dr. Collin Parker MD 04/12/22 17:06 Assessment & Plan Assessment/Plan (1) Atrial fibrillation with RVR: (2) History of diabetes mellitus: (3) Hypertension: PLAN: Plan I independently saw this patient, examined, reviewed the current clinical data including cardiac rehabilitation program director EKG, imaging studies with echocardiogram and current lab results as well as his current medication I formulated cardiac care plan as per midlevel documentation. Patient with history of diabetes mellitus, hypertension, had episode of paroxysmal atrial fibrillation converted to normal sinus rhythm Cardiac care plan recommendation: This patient's echocardiogram showed LV function preserved with no significant valvular abnormality 1. Patient to continue on anticoagulation with Eliquis 2. Continue calcium channel courtney with Cardizem SR 120 mg daily Will resume his medication with lisinopril 10 mg and to continue with treatment for diabetes mellitus 3. Patient to continue follow-up at [facility] cardiology. With Dr. Hebert for continuation of cardiac care and further recommendation. Possible evaluation with Kenneth sestamibi study as she has multiple risk factor for CAD. HPI Consult Data Date of Consult: 04/12/22 [facility] Medical History Diabetes History of diabetes mellitus HTN (hypertension) Hyperlipidemia Home Medications lisinopril 5 mg tablet 10 mg PO QHS blood pressure 08/01/18 [History Last Taken 04/10/22] meclizine 25 mg tablet 25 mg PO Q8H PRN PRN Dizziness #20 tabs 08/01/18 [Rx Last Taken Unknown] metformin 500 mg tablet 500 mg PO QHS diabetes 08/01/18 [History Last Taken 04/10/22] diazepam 5 mg tablet (Valium) 5 mg PO TID PRN dizziness or vertigo #15 tabs 07/26/21 [Rx Last Taken Unknown] apixaban 5 mg tablet (Eliquis) 5 mg PO BID 30 days #60 tabs 04/12/22 [Rx Last Taken Unknown] meloxicam 15 mg tablet 15 mg PO DAILY arthritis 04/12/22 [History Last Taken 04/10/22] rosuvastatin 20 mg tablet 20 mg PO QHS cholesterol 04/12/22 [History Last Taken 04/10/22] Allergy/AdvReac Type Severity Reaction Status Date / Time Penicillins [PCN] Allergy Hives Verified 04/11/22 21:23 Family History Other CVA (cerebral vascular accident) Heart disease Surgical History Hx of cataract surgery Social History Smoking Status: Never smoker Physical Exam Narrative Patient seen and examined at bedside along with the nursing staff, at bedside at time of evaluation He is alert orientated x3 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 Examination of lower extremity no clubbing no cyanosis no lower extremity edema Lab / Micro Data Result Diagrams: 04/12/22 03:43 04/12/22 03:43
--- NOTE | 2022-04-12 14:32 | DCINST_ITS ---
Discharge Instructions Diet Discharge Diet: Low fat / Low cholesterol and Carb Control Diet Activity Discharge Activity: Return to Normal Activity Dressing / Incision Call your doctor if you observe: Fever of 101 or Higher, Shortness of breath, Dizziness, Fainting spells, Swelling in the ankles, Chest pain and Increased palpitations (irregular heartbeat) Follow Up Care Test Results: Test results from this visit will be discussed in further detail at your follow- up appointment, if applicable. Discharge Plan Admission Admit Date/Time: 04/12/22 00:00 Attending Provider: Dioni Padron Primary Care Provider: Daev Diaz Consulting Providers: Manish Bates ; Collin Parker Discharge Orders/Prescriptions Prescriptions: New Eliquis 5 mg Tablet 5 mg PO BID 30 Days Qty: 60 0RF Continued metformin 500 MG tablet 500 mg PO QHS lisinopril 5 MG tablet 10 mg PO QHS meclizine 25 MG tablet 25 mg PO Q8H PRN PRN (Reason: Dizziness) Qty: 20 0RF diazepam [Valium] 5 mg tablet 5 mg PO TID PRN (Reason: dizziness or vertigo) Qty: 15 0RF meloxicam 15 mg Tablet 15 mg PO DAILY rosuvastatin 20 mg Tablet 20 mg PO QHS Referrals / Follow Up: Dave Hebert MD [STAFF PHYSICIAN] - Within 1 Month Dave Diaz MD [Primary Care Provider] - Within 1 Week Disposition Disposition (needs filled in before D/C Order can be placed): Home, Self Care
--- NOTE | 2022-04-12 14:40 | DS.PCM_ITS ---
Providers Date of Admission: 04/12/22 Primary Care Physician: Dr. Jad Astudillo MD Consultations 04/12/22 00:47 Consult: Cardiology Routine Consulting Provider: Collin Parker Reason for Consult: Afib with RVR EMERGENT Consult: No MD Notified: Yes Date Notified: 04/12/22 Time Notified: 10:14 Method of Notification: Text Comments:: Per patient request. Reason For Visit: AFIB WITH RVR Diagnosis Discharge Diagnosis (1) Atrial fibrillation with RVR: Status: Acute Code(s): I48.91 - Unspecified atrial fibrillation Medications at Discharge Home Medications lisinopril 5 mg tablet 10 mg PO QHS blood pressure 08/01/18 meclizine 25 mg tablet 25 mg PO Q8H PRN PRN Dizziness #20 tabs 08/01/18 metformin 500 mg tablet 500 mg PO QHS diabetes 08/01/18 diazepam 5 mg tablet (Valium) 5 mg PO TID PRN dizziness or vertigo #15 tabs 07/26/21 apixaban 5 mg tablet (Eliquis) 5 mg PO BID 30 days #60 tabs 04/12/22 meloxicam 15 mg tablet 15 mg PO DAILY arthritis 04/12/22 rosuvastatin 20 mg tablet 20 mg PO QHS cholesterol 04/12/22 Hospital Course Operations None Procedures 2-D Echocardiogram Summary of Care Provided Minutes Spent on Discharge: 35 Hospital Course: Per HPI: Patient is a 52-year-old male with a significant history of obesity; hyperlipidemia; hypertension; diabetes mellitus; and rheumatoid arthritis who presents emergency department with 3-day history of persistent palpitations.? His symptoms started about 3 days ago while [facility].? He went to emergency department; where he was given metoprolol and Cardizem drip.? Because he and his was making plans to come back to [facility] where he lives he talked to his PCP, Dr. Astudillo and patient was advised to seek further care at [place].? He was prescribed p.o. Cardizem pills and Eliquis at [facility] ED.? Subsequently when patient arrived from [place] he came to [facility] ED where he was still found to be in A. fib and was started on a Cardizem drip. Associated with his symptoms is dyspnea on exertion; nonproductive cough and near syncope. Hospital course: 1. A. fib with RVR?52-year-old male was on vacation at [facility] when he started feeling some palpitations and an maybe a little shortness of breath on 04/08/2022. On 04/10/2022 he felt even worse and so they went to the hospital where he was found to be in A. fib with RVR. They started him on Eliquis and Cardizem and he elected to go home instead of being cardioverted which she said that they had talked to him about. He presented to our hospital on 04/11/2022 in RVR. He was started on a Cardizem drip and cardiology was consulted. On the day of discharge he had reverted to normal sinus rhythm and was discharged on his Cardizem that he had filled at [facility]. He did not fill a prescription for Eliquis because his insurance felt that he needed a prior Auth for Eliquis in the setting of A. fib so he paid for 3 pills [id number] to get him to [place]. We will plan to discharge him on Eliquis and work on the prior authorization for the appropriate medication. I recommend that he follow-up with cardiology within the next month or 2 as well as PCP in the next week. I discussed with him and his the plan for discharge today and expressed understanding of the risk benefits of going home and would like to go home today. 2. Type 2 diabetes, hypertension, hyperlipidemia are chronic medical conditions which complicate his care. His home medications were continued where appropriate Physical Exam Const alert, oriented x3 and no apparent distress General Appearance: cooperative HEENT normocephalic and moist oral mucous membranes Eyes PERRL, EOMs intact bilaterally and conjunctivae normal Neck supple and no JVD Resp normal respiratory effort, no retractions, no use of accessory muscles and clear to auscultation bilaterally Auscultation: Negative for crackles, rales, rhonchi or wheezes Cardio regular rate, regular rhythm, S1 normal heart sound, S2 normal heart sound and no murmurs GI soft to palpation, non-tender and non-distended; Negative for hepatosplenomegaly Extremity no clubbing, cyanosis or edema Skin no rashes or lesions noted Neuro no focal motor deficits and no sensory deficits noted Psych affect normal Appearance: appropriate Weight / BMI Weight Weight: 296 lb 1.293 oz Body Mass Index (BMI) 43.7 ABG / Lab / Microbiology Data Result Diagrams: 04/12/22 03:43 04/12/22 03:43 Laboratory: Laboratory Results - last 24 hr 04/11/22 22:00: WBC 7.3, RBC 4.62, Hgb 13.3, Hct 40.7, MCV 88.1, MCH 28.8, MCHC 32.7, RDW Std Deviation 48.6 H, RDW Coeff of Maninder 15.2 H, Plt Count 270, MPV 9.2, Immature Gran % (Auto) 0.400, Neut % (Auto) 57.3, Lymph % (Auto) 32.1, Wilbarger % (Auto) 7.7, Eos % (Auto) 1.8, Baso % (Auto) 0.7, Absolute Neuts (auto) 4.2, Absolute Lymphs (auto) 2.35, Nucleated RBC % 0 04/11/22 22:00: PT 14.3, INR 1.1, APTT 41.5 H, D-Dimer Quant (PE/DVT) < 0.27 L 04/11/22 22:00: Sodium 142, Potassium 3.6, Chloride 108 H, Carbon Dioxide 27.0, Anion Gap 7, BUN 18, Creatinine 1.10, Estim Creat Clear Calc 80.34, Est GFR (MDRD) Af Amer 91, Est GFR (MDRD) Non-Af 75, BUN/Creatinine Ratio 16.4, Glucose 199 H, Calcium 9.0, Total Bilirubin 0.50, AST 26, ALT 36, Alkaline Phosphatase 61, Troponin I High Sens 16, Total Protein 7.5, Albumin 3.6, Globulin 3.9, Albumin/Globulin Ratio 0.9 04/12/22 03:43: WBC 6.4, RBC 4.36 L, Hgb 12.5 L, Hct 38.7 L, MCV 88.8, MCH 28.7, MCHC 32.3, RDW Std Deviation 49.1 H, RDW Coeff of Maninder 15.0 H, Plt Count 238, MPV 9.1, Immature Gran % (Auto) 0.300, Neut % (Auto) 52.8, Lymph % (Auto) 34.0, Wilbarger % (Auto) 9.6, Eos % (Auto) 2.5, Baso % (Auto) 0.8, Absolute Neuts (auto) 3.4, Absolute Lymphs (auto) 2.17, Nucleated RBC % 0 04/12/22 03:43: Sodium 143, Potassium 3.7, Chloride 110 H, Carbon Dioxide 27.0, Anion Gap 6, BUN 16, Creatinine 0.97, Estim Creat Clear Calc 91.11, Est GFR (MDRD) Af Amer 105, Est GFR (MDRD) Non-Af 87, BUN/Creatinine Ratio 16.5, Glucose 130 H, Calcium 8.6 04/12/22 03:43: Magnesium 2.0 04/12/22 03:43: TSH 3.84 H 04/12/22 08:11: POC Glucose 141 H 04/12/22 12:00: POC Glucose 167 H Microbiology: Microbiology 04/11/22 22:05 Nasal Secretion SARS-CoV-2 Antigen (Rapid) - Final Radiography Diagnostic Testing: Radiology Impression Chest X-Ray 04/11/22 23:03 IMPRESSION: No radiographic evidence of acute cardiopulmonary disease. Electronically Signed: Tricia Corado MD at 0:12 EDT , Echocardiogram 04/12/22 05:55 Interpretation Summary The estimated ejection fraction is 55-60 %. Normal LV systolic function No previous echo to compare Ordering Physician: Manish Bates Referring Physician: JAD ASTUDILLO Performed By: Meri Venegas RDCS D/C Instructions Discharge Diet: Low fat / Low cholesterol and Carb Control Diet Call your doctor if you observe: Fever of 101 or Higher, Shortness of breath, Dizziness, Fainting spells, Swelling in the ankles, Chest pain and Increased palpitations (irregular heartbeat) Meaningful Use Info Meaningful Use Diagnoses (Choose all that apply): None applicable Discharge Plan Admission Admit Date/Time: 04/12/22 00:00 Attending Provider: Dioni Padron Primary Care Provider: Jad Astudillo Consulting Providers: Manish Bates ; Collin Parker Discharge Orders/Prescriptions Prescriptions: New Eliquis 5 mg Tablet 5 mg PO BID 30 Days Qty: 60 0RF Continued metformin 500 MG tablet 500 mg PO QHS lisinopril 5 MG tablet 10 mg PO QHS meclizine 25 MG tablet 25 mg PO Q8H PRN PRN (Reason: Dizziness) Qty: 20 0RF diazepam [Valium] 5 mg tablet 5 mg PO TID PRN (Reason: dizziness or vertigo) Qty: 15 0RF meloxicam 15 mg Tablet 15 mg PO DAILY rosuvastatin 20 mg Tablet 20 mg PO QHS Referrals / Follow Up: Jad Hebert MD [STAFF PHYSICIAN] - Within 1 Month Jad Astudillo MD [Primary Care Provider] - Within 1 Week Disposition Disposition (needs filled in before D/C Order can be placed): Home, Self Care Charges/Coding Visit Charges OBSV E&M: 69689 Observation care discharge
--- NOTE | 2022-04-12 15:09 | CASEMGMT ---
Pt to be sent home on Eliquis at discharge and med e-scribed to [facility]. Call to [facility] to verify coverage/co-pay and per tech, Eliquis needs a prior auth. Call to [facility] and prior auth obtained at this time. Effective 03/13/22-04/12/23 . Pt already provided with Eliquis 30 day free trial card and Eliquis co-pay card. Pt voices no further questions/concerns/needs. Yessi VIDAL CM
[2022-04-12 18:25] LABS: Bedside Glucose 113 mg/dL (74-106)
== END 2022-04-12 15:23 | disposition home or self-care (01) ==
LOC: ED 23:40 → ICU 04-12 00:25
PROVIDERS: Admitting Provider Hospitalist; Emergency Provider Emergency Medicine; PCP Family Medicine; Visit Provider Family Medicine
DX: I48.91 Unspecified atrial fibrillation (principal); M06.9 Rheumatoid arthritis, unspecified; I48.92 Unspecified atrial flutter; Z68.41 Body mass index [BMI] 40.0-44.9, adult; E11.9 Type 2 diabetes mellitus without complications; I10 Essential (primary) hypertension; E66.9 Obesity, unspecified; Z79.01 Long term (current) use of anticoagulants; E78.5 Hyperlipidemia, unspecified; Z79.899 Other long term (current) drug therapy; Z79.84 Long term (current) use of oral hypoglycemic drugs; J06.9 Acute upper respiratory infection, unspecified
CPT/HCPCS: 71045; 80048; 80053; 82962; 83735; 84443; 84484; 85025; 85379; 85610; 85730; 87811; 93005; 93306; 96365; 96366; 96375; 99218; 99285; J7030; Q9957; A4216; C8929; G0378

== ENCOUNTER → 2022-05-31 | Outpatient (CLI) | payer BC, SELFPAY ==
--- NOTE | 2022-05-31 09:55 | STRESSREP_ITS ---
Stress Test Report Date: 05-31-2022 Procedure: Exercise tolerance test/imaging study Indications: Atrial fibrillation; COVID-19 Consent: Per the patient Procedure: The patient exercised on a Martínez protocol for 5 minutes and 25 seconds completing Stage I and 2 minutes and 25 seconds of Stage II achieving a peak heart rate of 146 bpm (85% predicted maximal heart rate) with a peak blood pressure 150/70 mmHg and a peak MET capacity of 7 METs. The baseline ECG demonstrated normal sinus rhythm. The peak exercise ECG demonstrated no obvious ECG changes. There were no cardiac dysrhythmias pretest, during exercise, or recovery. The functional capacity was considered average. There was no complaint of chest discomfort during exercise or recovery. The examination was discontinued secondary to dyspnea; leg discomfort. Impression: 1. Technically adequate (percent predicted maximal heart rate greater than 85%) exercise tolerance test 2. Peak exercise ECG with no obvious ECG changes 3. There were no cardiac dysrhythmias pretest, during exercise, or recovery 4. Nuclear images pending Myocardial perfusion imaging study: Technique: The patient was injected with 15.0 mCi of technetium 99m Cardiolite and subsequently rest SPECT Cardiolite nuclear imaging was obtained in the horizontal long, vertical long, and short axis views. The patient exercised on a Martínez protocol for 5 minutes and 25 seconds completing Stage I and 2 minutes and 25 seconds of Stage II achieving a peak heart rate of 146 bpm (85% predicted maximal heart rate) with a peak blood pressure 150/70 mmHg and a peak MET capacity of 7 METs. The patient was injected with 44.9 mCi of technetium 99m Cardiolite and subsequently stress SPECT Cardiolite nuclear imaging was obtained in the horizontal long, vertical long, and short axis views. A gated Cardiolite study at peak stress was obtained. Interpretation: Rest and stress SPECT Cardiolite nuclear imaging status post realignment, normalization, and attenuation correction, demonstrates on the preattenuation correction images the appearance of relative uniform tracer uptake and myocardial perfusion appearing within normal limits. On the post attenuation correction images there is notation of subtle diminished tracer uptake in the mid anterior segments at rest which appears to be more prominent following stress. There is end systolic thickening and brightening. The gated Cardiolite study demonstrates myocardial thickening and inward wall motion. The reported LVEF is 72%. Impression: 1. Rest and stress SPECT Cardiolite nuclear imaging demonstrate on the post attenuation correction images the appearance of notation of a subtle diminished tracer uptake in the mid anterior segments at rest which appears to be more prominent following stress concerning for an area of stress-induced myocardial ischemia, however, an element of shifting soft tissue attenuation/artifact cannot necessarily be excluded. 2. The gated Cardiolite study reports an LVEF of 72%. This note was generated with TestQuestation software. It may contain incorrect words, spelling, and punctuation that were not noted in checking the note before signing.
== END | disposition home or self-care (01) ==
PROVIDERS: PCP Family Medicine; Referring Provider Physician Assistant Medical; Visit Provider Physician Assistant Medical
DX: I48.0 Paroxysmal atrial fibrillation (principal); I10 Essential (primary) hypertension; E78.5 Hyperlipidemia, unspecified
CPT/HCPCS: 78452; 93017; A9500; A4216

== ENCOUNTER 2022-06-19 08:47 | Emergency (ER) | payer BC, SELFPAY ==
[2022-06-19] VITALS (7 sets, daily range): BP systolic 105–137; BP diastolic 75–92; PULSE 64–149; RESP 13–19; TEMP 36.6–36.9; O2SAT 96–100; BMI 42.5
--- NOTE | 2022-06-19 08:56 | EKG12_ITS ---
Test Reason : palp Blood Pressure : / mmHG Vent. Rate : 148 BPM Atrial Rate : 148 BPM P-R Int : 194 ms QRS Dur : 082 ms QT Int : 208 ms P-R-T Axes : 057 032 268 degrees QTc Int : 326 ms Atrial Flutter 2:1 ST & T wave abnormality, consider inferior ischemia ST & T wave abnormality, consider anterolateral ischemia Abnormal ECG Confirmed by JAZIEL DEAN, CHARY ([id number]), staff editor GARRETT WRIGHT ([id number]) on 06/20/2022 1:57:01 PM Referred By: Tomás Confirmed By:CHARY SHERIFF MD
--- NOTE | 2022-06-19 08:56 | RAD_ITS ---
STUDY: X-RAY CHEST REASON FOR EXAM: Male, 52 years old. Chest pain TECHNIQUE: Single AP portable view of the chest. COMPARISON: None. FINDINGS: EKG electrodes are seen. The lungs are clear and expanded. There is no demonstrated pleural abnormality. Normal size heart. Normal mediastinum and hernesto. Normal visualized pulmonary arteries. Normal visualized aortic arch and descending thoracic aorta. There are diffuse degenerative changes of the visualized thoracic spine. Normal visualized ribs, clavicles, and shoulders. There is no demonstrated abnormality of the visualized soft tissue structures of the upper abdomen. RAD/Chest 1 View (Portable) IMPRESSION: No acute abnormalities. Electronically Signed: Jas Parry MD at 9:49 EDT ,
--- NOTE | 2022-06-19 08:58 | EX.ED.DYSGE1 ---
HPI History of Present Illness Chief Complaint: Palpitations Narrative Narrative: Patient presents with palpitations, he felt what he thought was A. fib started about 24 hours ago. He has a history of A. fib for the past 2 months he is on Eliquis for this he takes it for the past 2 months every day twice a day and does not miss doses. He did double up on his Cardizem but he is still in A. fib. He has no fevers or chills. He denies chest pain. No recent cough or congestion, no known risk factors to this new onset of A. fib other than his chronic medical problems. [facility] Medical History Abnormal stress test Atrial fibrillation with RVR Diabetes Essential hypertension History of diabetes mellitus HTN (hypertension) Hyperlipidemia Hypertension PAF (paroxysmal atrial fibrillation) Home Medications meclizine 25 mg tablet 25 mg PO Q8H PRN PRN Dizziness #20 tabs 08/01/18 [Rx Last Taken Unknown] metformin 500 mg tablet 500 mg PO QHS diabetes 08/01/18 [History Last Taken 04/10/22] meloxicam 15 mg tablet 15 mg PO DAILY arthritis 04/12/22 [History Last Taken 04/10/22] rosuvastatin 20 mg tablet 20 mg PO QHS cholesterol 04/12/22 [History Last Taken 04/10/22] apixaban 5 mg tablet (Eliquis) 5 mg PO BID #60 tabs 05/11/22 [Rx Last Taken Unknown] lisinopril 5 mg tablet 10 mg PO QHS blood pressure 05/17/22 [History Last Taken Unknown] diltiazem HCl 180 mg tablet,extended release 24 hr 180 mg PO BID This is a dose increase #180 tabs 06/18/22 [Rx Last Taken Unknown] Allergy/AdvReac Type Severity Reaction Status Date / Time Penicillins [PCN] Allergy Hives Verified 06/19/22 08:48 Family History Other CVA (cerebral vascular accident) Heart disease Surgical History Hx of cataract surgery Social History Smoking Status: Never smoker ROS ROS ED ROS Narrative Past medical history: Reviewed, includes diabetes, hypertension, hypercholesterolemia, atrial fibrillation, obesity Medications: Reviewed, includes Eliquis, Cardizem, metformin, rosuvastatin, lisinopril Social history: Noncontributory Review of systems: All systems negative except as indicated General: No fever Eyes: No visual changes ENT: No upper airway congestion, normal voice Neck: No neck pain Cardiovascular: Palpitations as in HPI Respiratory: No shortness of breath or cough Gastrointestinal: No abdominal pain, nausea vomiting or diarrhea Genitourinary: No dysuria Musculoskeletal: Denies myalgias no difficulty with ambulation Skin: No rash Neurological: No memory loss, confusion or any focal weakness Psych: No recent behavioral changes Hematologic: No easy bleeding or easy bruising EXAM Physical Exam Narrative Exam Narrative: Physical exam General: Well nourished, Well developed, No Acute Distress Head: Normocephalic, Atraumatic Eyes: Conjunctiva not pale ENT: Moist mucous membranes Neck: Supple, Nontender, No lymphadenopathy Cardiovascular: Irregular tachycardia, no obvious murmur Respiratory: No distress, CTA bilaterally Abdomen: Soft, Nontender, Nondistended Back: Nontender, Normal Inspection. Negative for: CVA tenderness Extremities: Nontender, No edema Skin: Normal color, No rash Neurological: Alert, Normal Strength, Normal Sensation Psychological: Normal affect Const Vital Signs: 06/19/22 08:48 06/19/22 09:03 06/19/22 09:08 Temperature 98.5 F Temperature Source Temporal Pulse Rate 149 H Respiratory Rate 18 Respiratory Effort Normal Non-Labored Respiratory Pattern Blood Pressure 105/81 H Blood Pressure Mean 89 Pulse Ox 97 97 Oxygen Delivery Method Room Air Room Air 06/19/22 09:08 Temperature Temperature Source Pulse Rate Respiratory Rate Respiratory Effort Normal Non-Labored Respiratory Pattern Normal Blood Pressure Blood Pressure Mean Pulse Ox Oxygen Delivery Method MDM MDM MDM Narrative Medical decision making narrative: Patient's a flutter was cardioverted, he appears well and he is now in sinus rhythm we will discharge him to follow-up with his inoculator. Lab Data Labs: Laboratory Results - last 24 hr 06/19/22 06/19/22 08:59 08:59 WBC 8.8 RBC 5.14 Hgb 14.7 Hct 45.4 MCV 88.3 MCH 28.6 MCHC 32.4 RDW Std Deviation 50.2 H RDW Coeff of Maninder 15.5 H Plt Count 359 MPV 9.1 Immature Gran % (Auto) 0.300 Neut % (Auto) 58.5 Lymph % (Auto) 30.1 [place] % (Auto) 9.3 Eos % (Auto) 1.1 Baso % (Auto) 0.7 Absolute Neuts (auto) 5.1 Absolute Lymphs (auto) 2.65 Nucleated RBC % 0 Sodium 140 Potassium 4.1 Chloride 105 Carbon Dioxide 27.0 Anion Gap 8 BUN 17 Creatinine 1.25 Estim Creat Clear Calc 70.70 Est GFR (MDRD) Af Amer 79 Est GFR (MDRD) Non-Af 65 BUN/Creatinine Ratio 13.6 Glucose 153 H Calcium 9.6 Troponin I High Sens 14 Radiography Diagnostic Testing: Clinical Impression(s) from Imaging Studies Chest X-Ray 06/19/22 08:56 IMPRESSION: No acute abnormalities. Electronically Signed: Jas Parry MD at 9:49 EDT Reading Location ID and State: [facility] / [place] , Service support , EKG Initial EKG: Comments: Atrial flutter with 2-1 block with a rate of 148. ST wave abnormalities likely rate related. Otherwise unremarkable EKG Interpreted by emergency DrMarcela Procedures Procedural Sedation 1 (Initial Baseline): Consent Signed: Yes Any Problems With Anesthesia: No You/Your family experience fever (hyperthermia) w/anesthesia: No Sedation medication: Propofol Dose: 100 Route: IV Mallampati Score: Class III ASA Classification: III Comment:: Written consent obtained, a total of 100 mg of propofol were given for procedural sedation patient achieved anesthesia well. Other Procedures Procedure(s): Electrical cardioversion This was done concurrently with the procedural sedation. Written consent was obtained Indication: Atrial flutter After consent was obtained, I used a total of 200 J of biphasic energy, as this was a synchronized cardioversion. Patient cardioverted to sinus rhythm. Cardioversion was successful and Patient tolerated procedure well. Discharge Plan Triage Chief Complaint: Palpitations ED Provider: Dave Chirinos Dx/Rx/DC Orders Clinical Impression: Atrial flutter, Encounter for cardioversion procedure, Atrial fibrillation Instructions: AFib Dc, AFib Prescriptions: No Action metformin 500 MG tablet 500 mg PO QHS meclizine 25 MG tablet 25 mg PO Q8H PRN PRN (Reason: Dizziness) Qty: 20 0RF lisinopril 5 mg tablet 10 mg PO QHS meloxicam 15 mg Tablet 15 mg PO DAILY rosuvastatin 20 mg Tablet 20 mg PO QHS Eliquis 5 mg tablet 5 mg PO BID Qty: 60 11RF diltiazem HCl 180 mg tablet extended release 24 hr 180 mg PO BID Qty: 180 3RF Primary Care Provider: Dave Diaz Referrals: Dave Hebert MD [Med Staff - Active Staff] - 3-5 Days Dave Diaz MD [Primary Care Provider] - Disposition Disposition: Home, Self Care
[2022-06-19] MEDS: Digoxin 250 MCG/ML Ampul 125 MCG IV (09:04)
[2022-06-19] MEDS: dilTIAZem 25 MG/5 ML Vial IV BOLUS (09:06)
[2022-06-19 09:08] LABS: Absolute Lymphocyte Count 2.65 X10^3/uL (0.83-4.51); Absolute Neutrophil Count 5.1 X10^3/uL (2.0-7.7); Basophil# 0.06 X10^3/uL; Basophil% 0.7 % (0-1); Eosinophils% 1.1 % (0-5); Hematocrit 45.4 % (40-54); Hemoglobin 14.7 g/dL (13.0-16.5); Lymphocyte # 2.65 X10^3/ul (0.83-4.51); Lymphocyte % 30.1 % (19-41); Mean Corp Hgb Conc 32.4 g/dL (32-36); Mean Corpuscular Hgb 28.6 pg (27.0-32.0); Mean Corpuscular Volume 88.3 fL (80-94); Mean Platelet Vol. 9.1 fl (6.2-12.0); Monocyte# 0.82 X10^3/uL; Monocyte% 9.3 % (0-10); NRBC Flagged by Analyzer 0 % (0-5); Neutrophil # 5.14 X10^3/uL (2.7-7.7); Neutrophil % 58.5 % (47-70); Platelet Count 359 K/mm3 (150-450); RBC Distribution Width CV 15.5 % (11.6-14.6); RBC Distribution Width SD 50.2 fl (35.1-43.9); Red Blood Count 5.14 M/mm3 (4.6-6.2); White Blood Count 8.8 K/mm3 (4.4-11.0)
[2022-06-19 09:25] LABS: Anion Gap 8 (5-15); BUN 17 mg/dL (7-18); BUN/Creat Ratio 13.6 RATIO (10-20); Calcium,Total 9.6 mg/dL (8.5-10.1); Chloride 105 mmol/L (98-107); Creatinine, Serum 1.25 mg/dL (0.70-1.30); EST Glomerular Filtration Rate 65 mL/min (>60); Est Glom Filt Rate - Afr Amer 79 mL/min (>60); Glucose 153 mg/dL (74-106); Potassium 4.1 mmol/L (3.5-5.1); Sodium Level 140 mmol/L (136-145); Troponin-I HS (w/2H Reflex) 14 pg/mL (3.0-78.0)
[2022-06-19 11:04] LABS: Reflex Troponin-HS? (from REC) Y
[2022-06-19] MEDS: Propofol 200 MG/20 ML Vial IV BOLUS (11:31)
[2022-06-19 12:04] LABS: Troponin-I HS 13 pg/mL (3.0-78.0)
== END 2022-06-19 12:38 | disposition home or self-care (01) ==
PROVIDERS: Emergency Provider Emergency Medicine; PCP Family Medicine; Visit Provider Emergency Medicine
DX: I48.92 Unspecified atrial flutter (principal); I48.0 Paroxysmal atrial fibrillation; E11.9 Type 2 diabetes mellitus without complications; I10 Essential (primary) hypertension; E78.00 Pure hypercholesterolemia, unspecified; E66.9 Obesity, unspecified; Z79.01 Long term (current) use of anticoagulants; Z79.84 Long term (current) use of oral hypoglycemic drugs; Z79.899 Other long term (current) drug therapy; Z82.49 Family history of ischemic heart disease and other diseases of the circulatory system
CPT/HCPCS: 36591; 71045; 80048; 84484; 85025; 93005; 96374; 96375; 99152; 99285; J7030; A4216

== ENCOUNTER → 2022-07-04 | Outpatient (CLI) | payer BC, SELFPAY ==
[2022-07-04 10:13] LABS: Absolute Lymphocyte Count 1.71 X10^3/uL (0.83-4.51); Absolute Neutrophil Count 4.4 X10^3/uL (2.0-7.7); Basophil# 0.04 X10^3/uL; Basophil% 0.6 % (0-1); Eosinophils% 1.5 % (0-5); Hematocrit 38.7 % (40-54); Hemoglobin 12.4 g/dL (13.0-16.5); Lymphocyte # 1.71 X10^3/ul (0.83-4.51); Lymphocyte % 25.1 % (19-41); Mean Corpuscular Hgb 28.6 pg (27.0-32.0); Mean Corpuscular Volume 89.2 fL (80-94); Mean Platelet Vol. 9.1 fl (6.2-12.0); Monocyte# 0.52 X10^3/uL; Monocyte% 7.6 % (0-10); NRBC Flagged by Analyzer 0 % (0-5); Neutrophil # 4.42 X10^3/uL (2.7-7.7); Neutrophil % 64.8 % (47-70); Platelet Count 257 K/mm3 (150-450); RBC Distribution Width CV 15.7 % (11.6-14.6); RBC Distribution Width SD 51.2 fl (35.1-43.9); Red Blood Count 4.34 M/mm3 (4.6-6.2); White Blood Count 6.8 K/mm3 (4.4-11.0)
[2022-07-04 10:20] LABS: International Normalized Ratio 1.1; Prothrombin Time (Protime)PT. 13.6 SECONDS (11.7-14.9)
[2022-07-04 10:34] LABS: Anion Gap 8 (5-15); BUN 17 mg/dL (7-18); BUN/Creat Ratio 17.7 RATIO (10-20); Calcium,Total 9.1 mg/dL (8.5-10.1); Chloride 105 mmol/L (98-107); Creatinine, Serum 0.96 mg/dL (0.70-1.30); EST Glomerular Filtration Rate 88 mL/min (>60); Est Glom Filt Rate - Afr Amer 106 mL/min (>60); Glucose 141 mg/dL (74-106); Potassium 4.1 mmol/L (3.5-5.1); Sodium Level 139 mmol/L (136-145)
== END | disposition home or self-care (01) ==
LOC: MTLAB 08:07
PROVIDERS: PCP Family Medicine; Referring Provider Internal Medicine Cardiovascular Disease; Visit Provider Internal Medicine Cardiovascular Disease
DX: R94.39 Abnormal result of other cardiovascular function study (principal); I48.0 Paroxysmal atrial fibrillation; I10 Essential (primary) hypertension; E78.5 Hyperlipidemia, unspecified
CPT/HCPCS: 36415; 80048; 85025; 85610; 85730

== ENCOUNTER 2022-07-10 07:27 | Day surgery (SDC) | payer BC, SELFPAY ==
[2022-07-06 12:28] VITALS: BMI 43.7
--- NOTE | 2022-07-06 16:35 | HP.PCM_ITS ---
Documented by User: Juliet Barnes NP, LIFE SCIENCE TECHNICAL OFFICER-C 07/06/22 16:40 History and Physical Date of Admission: 07/10/22 This is a 52-year-old white male who presents to the cath lab tech for a left heart catheterization. He has a history of atrial fibrillation and an abnormal stress nuclear imaging study superimposed upon a history of hyperlipidemia and hypertension.? He was evaluated in April of this year at [facility] for concerns of atrial fibrillation.? He states this developed while he was vacationing in [place], [place].? He was evaluated in their emergency department and subsequently left there, drove back to [place], [place], and was evaluated at the [facility] emergency department.? He was then brought into the hospital for further evaluation and care.? He notes after receiving IV medications in the emergency department he had subsequent spontaneous conversion to sinus rhythm. He did undergo a noninvasive evaluation.? This did include cardiac enzymes which were negative.? It also included a transthoracic echocardiogram with the results as noted below.? He was released home for continued outpatient follow-up with request to have an outpatient exercise tolerance test/imaging study.? This was subsequently performed on 05-31-2022.? The results are noted below.? He has since then been recommended for further evaluation with diagnostic cardiac catheterization. He states his original symptoms did demonstrate palpitations as well as feeling somewhat more short of breath and dyspneic as well as lightheaded and dizzy.? He states he felt like he was going to lose consciousness but did not.? He does not recall any other symptoms of other forms of chest discomfort or difficulty breathing.? There has been no orthopnea or PND or peripheral pitting edema. Since his hospitalization he states there was 1 time where he briefly felt he reentered atrial fibrillation.? He contacted his PCP.? He took his medications earlier than usual that day.? He noted within about 30 minutes of taking his medications he returned to normal rhythm.? He tracks this through his wris twatch. In the office he had an ECG.? He was noted to be in sinus rhythm with no acute ECG changes. Intake Vital Signs : See EMR Intake Visit Reasons:[facility] [employer]estock [employer] Required: No Accompanied by: Self Allergies Penicillins [PCN] Allergy (Verified 06/07/22 14:50) Hives Medications See EMR [facility] Medical History? Abnormal stress test Atrial fibrillation with RVR Diabetes Essential hypertension History of diabetes mellitus HTN (hypertension) Hyperlipidemia Hypertension PAF (paroxysmal atrial fibrillation) Surgical History? Hx of cataract surgery Family History? Other CVA (cerebral vascular accident) Heart disease Social History? Smoking Status:? Never smoker ROS Const Const: Negative for fatigue, weakness, body ache, fever(s), headache(s), chills, frequent falls, night sweats, daytime sleepiness, difficulty sleeping, excessive sweating, weight gain, weight loss, increased appetite, poor appetite, anorexia or other Eyes Eyes: Negative for blurry vision or double vision ENT ENT: Negative for headache(s), dizziness or balance problems Cardio Chest Pain: No Palpitations: No Edema: None Muscle aches with walking: None Resp Respiratory: Negative for SOB with activity, SOB at rest, SOB orthopnea\SOB lying down, Cough, Coughing up blood/hemoptysis, chest congestion, pain on inspiration, snoring, stridor, wheezing, crackles, paroxysmal nocturnal dyspnea or other Musc Musc: Negative for muscle aches/ myalgia, muscle weakness, joint pain or balance problems Neuro Neuro: Negative for dizziness, lightheadedness, near syncope, syncope, orthostatic symptoms, frequent falls, headache(s), weakness, confusion, memory loss, restless legs, blurry vision, double vision, vertigo, seizures, lack of coordination or other Endo Endo: Negative for fatigue or excessive sweating Cardiology Exam Const Appearance: cooperative, healthy appearing, comfortable, no acute distress, well developed and well groomed Nutritional Appearance: obese Orientation: alert, awake and oriented x3 Head Head: normal to inspection, normocephalic and atraumatic Ears: hearing grossly normal bilaterally Nose: external nose normal Face and Sinus: face symmetric Eyes Eyelids: eyelids normal Conjunctivae: conjunctivae normal Pupils: PERRL EOM: EOM intact bilaterally Neck Neck: normal visual inspection and full ROM Carotids: normal carotid upstroke Chest Chest inspection: normal inspection of the chest, symmetric chest movement and normal respiratory effort Auscultation: Bilateral: Clear to Auscultation Cardio Palpation: normal PMI Rate: regular rate Rhythm: regular rhythm Heart sounds: S1 normal and S2 normal GI GI: normal to inspection, soft, bowel sounds present and obese Neuro General: patient alert, patient awake, patient oriented x3 and moves all extremities Skin Skin: no rashes or lesions noted Extremities Pulses: Normal: Right Posterior Tibial Pulse, Left Posterior Tibial Pulse, Right Radial Pulse and Left Radial Pulse Lower Extremity Edema: None: Bilateral Psych Psychological: normal affect Supplemental Info Supplemental Information Echocardiogram: 04/12/2022 Interpretation Summary The estimated ejection fraction is 55-60 %. Normal LV systolic function No previous echo to compare Stress Test Report Date: 05-31-2022 Procedure: Exercise tolerance test/imaging study Indications: Atrial fibrillation; COVID-19 Consent: Per the patient Procedure: The patient exercised on a Martínez protocol for 5 minutes and 25 seconds completing Stage I and 2 minutes and 25 seconds of Stage II achieving a peak heart rate of 146 bpm (85% predicted maximal heart rate) with a peak blood pressure 150/70 mmHg and a peak MET capacity of 7 METs. The baseline ECG demonstrated normal sinus rhythm.? The peak exercise ECG demonstrated no obvious ECG changes. There were no cardiac dysrhythmias pretest, during exercise, or recovery.? The functional capacity was considered average. There was no complaint of chest discomfort during exercise or recovery. The examination was discontinued secondary to dyspnea; leg discomfort. Impression: 1.? Technically adequate (percent predicted maximal heart rate greater than 85%) exercise tolerance test 2.? Peak exercise ECG with no obvious ECG changes 3.? There were no cardiac dysrhythmias pretest, during exercise, or recovery 4.? Nuclear images pending Myocardial perfusion imaging study: Technique: The patient was injected with 15.0 mCi of technetium 99m Cardiolite and subsequently rest SPECT Cardiolite nuclear imaging was obtained in the horizontal long, vertical long, and short axis views. The patient exercised on a Martínez protocol for 5 minutes and 25 seconds completing Stage I and 2 minutes and 25 seconds of Stage II achieving a peak heart rate of 146 bpm (85% predicted maximal heart rate) with a peak blood pressure 150/70 mmHg and a peak MET capacity of 7 METs. The patient was injected with 44.9 mCi of technetium 99m Cardiolite and subsequently stress SPECT Cardiolite nuclear imaging was obtained in the horizontal long, vertical long, and short axis views.? A gated Cardiolite study at peak stress was obtained. Interpretation: Rest and stress SPECT Cardiolite nuclear imaging status post realignment, normalization, and attenuation correction, demonstrates on the preattenuation correction images the appearance of relative uniform tracer uptake and myocardial perfusion appearing within normal limits.? On the post attenuation correction images there is notation of subtle diminished tracer uptake in the mid anterior segments at rest which appears to be more prominent following stress.? There is end systolic thickening and brightening.? The gated Cardiolite study demonstrates myocardial thickening and inward wall motion.? The reported LVEF is 72%. Impression: 1.? Rest and stress SPECT Cardiolite nuclear imaging demonstrate on the post attenuation correction images the appearance of notation of a subtle diminished tracer uptake in the mid anterior segments at rest which appears to be more prominent following stress concerning for an area of stress-induced myocardial ischemia, however, an element of shifting soft tissue attenuation/artifact cannot necessarily be excluded. 2.? The gated Cardiolite study reports an LVEF of 72%. Labs: ?? ? LDL Cholesterol 97 mg/dL (0-130) ?? ? HDL Cholesterol 35 mg/dL (40-) L ?? ? Triglycerides 296 mg/dL (-199) H ?? ? VLDL Cholesterol 59 mg/dL (5-40)? H Diagnostics: ?? ? Electrocardiogram ? Echocardiogram ? Stress Test NM ? Stress Test ? Chest X-Ray ? Pulmonary: ?? ? No Data to Display Assessment and Plan Assessment and Plan (1) Abnormal stress test: ?Status:?Acute ?Plan: He does have an abnormal stress nuclear imaging study.? It is abnormal in the anterior distribution. He will be further evaluated with a diagnostic cardiac catheterization.? The procedure and risk were discussed with him.? He was agreeable to this approach. (2) PAF (paroxysmal atrial fibrillation): ?Status:?Acute ?Plan: He has demonstrated a history of paroxysmal atrial fibrillation. At the moment he will continue his current medical therapy with adjustments as deemed appropriate in and around the time of his cardiac catheterization procedure. (3) Hyperlipidemia: ?Status:?Acute ?Plan: He should continue risk factor evaluation and care as well.? This does include his medical management. (4) Essential hypertension: ?Status:?Acute ?Plan: His blood pressures do need to be monitored with his medicines adjusted accordingly. Documented by User: Dr. Dave Hebert MD 07/10/22 07:36 Assessment & Plan Addt'l Comments I have re-examined the patient. There are no clinical changes since date of exa m. This note was generated using a voice recognition system and there may be incorrect words, spelling or punctuation that were not noted when reviewing the office note prior to saving.
--- NOTE | 2022-07-10 10:01 | CL.D_ITS ---
Patient Name: CHRISTIANO WILLARD Study Date: 07/10/2022 Performing: Dave Hebert MD Ht: 69 inches 175.26 cm : 1970 Wt: 295.99 lbs 134.26 kg Age: 52 Gender: male BSA: 2.44 PROCEDURE(S) PERFORMED [id number]-(93092)[facility] CLINICAL PROFILE AND INDICATIONS Indications: Cardiac Arrythmia, Suspected CAD Heart Failure: None Stress/Imaging Date: 05/31/2022tress Test with SPECT MPI: Positive Intermediate Risk Angina Classification Anginal Classification w/in 2 Weeks: Anginal Equivalent Dyspnea CAD Presentations: Other: palpitations; dyspnea on exertion CONCLUSIONS Elevated Left Ventricular End Diastolic Pressure Single vessel CAD of the LAD: mild luminal irregularities (non obstructive) RECOMMENDATIONS Risk factor modification Medical therapy DESCRIPTION OF PROCEDURE The patient arrived to the procedure lab. The risks and benefits of the procedure as well as a full description of our services here and current unavailability of surgical backup were fully explained to the patient and/or their significant other prior to the catheterization. The Timeout was completed, verifying the correct patient and procedure. The patient's procedural site was prepped and draped in the usual fashion. Local anesthetic was given subcutaneously to right radial region with Lidocaine 2%. Using a modified Seldinger technique, arterial access was obtained via the right radial artery, a 6Fr sheath was inserted. Left Coronary Artery selective angiography was performed in multiple views using a 5 Fr. 4.0 Agra catheter. Right Coronary Artery selective angiography was then performed in multiple views using a 5 Fr. JR 4 catheter. LV to AO pullback pressures were then recorded.The arterial sheath was pulled and a TR Band was applied for hemostasis w/ 10ml air CORONARY ANGIOGRAPHY DOMINANCE: Right Dominant LEFT HEART ASSESSMENT Left Ventricular Ejection Fraction: Not assessed Elevated Left Ventricular End Diastolic Pressure LVEDP: 20 mmHg LEFT MAIN: Angiographically normal LEFT ANTERIOR DESCENDING ARTERY: MID LAD: Mild luminal irregularities CIRCUMFLEX ARTERY: Angiographically normal RIGHT CORONARY ARTERY: Angiographically normal COMPLICATIONS No Complications PROCEDURE MEDICATIONS Versed 1 mg IV Fentanyl 50 mcg IV Aspirin (325mg) 1 Tabs PO @ 07/10/2022 07:41:32 Heparin given IA 07/10/2022 09:17:32 Verapamil 2.5mg, Ntg 100mcgs, 3000 units of Heparin given IA 07/10/2022 09:17:32 SUMMARY OF HEMODYNAMIC DATA Time AIR REST ECG 07:43:34 AO 159/98 (129) SA 09:26:19 LV 148/2, 20 09:39:22 LV 141/8, 20 09:39:30 LVp 143/5, 17 09:39:38 AOp 143/77 (106) 09:39:45 AIR REST 09:52:46 Signed By Dave Hebert MD On 07/10/2022 10:01:17 Dave Hebert MD
== END 2022-07-10 11:50 | disposition home or self-care (01) ==
LOC: CLSP 07:28
PROVIDERS: PCP Family Medicine; Referring Provider Internal Medicine Cardiovascular Disease; Visit Provider Internal Medicine Cardiovascular Disease
DX: I25.10 Atherosclerotic heart disease of native coronary artery without angina pectoris (principal); I48.0 Paroxysmal atrial fibrillation; Z68.41 Body mass index [BMI] 40.0-44.9, adult; E11.9 Type 2 diabetes mellitus without complications; R94.39 Abnormal result of other cardiovascular function study; I10 Essential (primary) hypertension; E78.5 Hyperlipidemia, unspecified; E66.9 Obesity, unspecified; Z79.84 Long term (current) use of oral hypoglycemic drugs; Z79.899 Other long term (current) drug therapy; Z82.49 Family history of ischemic heart disease and other diseases of the circulatory system
CPT/HCPCS: 93454; 99152; 99153; J7040; Q9967; C1769; C1894

== ENCOUNTER 2022-11-12 09:10 | Emergency (ER) | payer BC, SELFPAY ==
[2022-11-12] VITALS (9 sets, daily range): BP systolic 113–139; BP diastolic 72–98; PULSE 62–140; RESP 12–19; TEMP 36.1; O2SAT 94–98; BMI 43.5
--- NOTE | 2022-11-12 09:26 | EKG12_ITS ---
Test Reason : PALPS Blood Pressure : / mmHG Vent. Rate : 123 BPM Atrial Rate : 286 BPM P-R Int : 000 ms QRS Dur : 082 ms QT Int : 376 ms P-R-T Axes : 000 025 -40 degrees QTc Int : 538 ms Atrial flutter with variable A-V block with premature ventricular or aberrantly conducted complexes Abnormal ECG Confirmed by JAZIEL DEAN, CHAYR ([id number]), video editor GARRETT WRIGHT ([id number]) on 11/13/2022 8:32:35 AM Referred By: JANE Confirmed By:CHARY SHERIFF MD
--- NOTE | 2022-11-12 09:27 | EX.ED.DYSGE1 ---
HPI History of Present Illness Chief Complaint: Palpitations Informant: patient Narrative Narrative: Presents knowingly in atrial fibrillation. History of paroxysmal atrial fibrillation and initially back in April 2022. Idiopathic. Has had a heart cath with no ischemic findings. He is on Eliquis twice a day with no missed doses. He is on diltiazem 120 twice daily along with metoprolol 25 mg twice daily. He felt himself going to [facility] on Saturday 2 days ago. It went back. Yesterday recurrent he took an extra dose of diltiazem in the afternoon. Persisted. This morning took his normal dosing call cardiology and was told to go to ED. He does state intermittent lightheaded symptoms. No chest pains. He states he felt under the weather earlier in the week with slight diarrhea resolved by Saturday. No cough. Has been tolerating oral fluids. History of diabetes and hyperlipidemia along with hypertension. He has been cardioverted back in June of last year. His last meal was yesterday evening. Prior similar symptoms: Yes PFSH PFSH Medical History Abnormal stress test Atrial fibrillation with RVR Diabetes Essential hypertension History of diabetes mellitus History of left heart catheterization (LHC) (~07/10/22) HTN (hypertension) Hyperlipidemia Hypertension PAF (paroxysmal atrial fibrillation) Home Medications meclizine 25 mg tablet 25 mg PO Q8H PRN PRN Dizziness #20 tabs 08/01/18 [Rx Last Taken Unknown] metformin 500 mg tablet 500 mg PO QHS diabetes 08/01/18 [History Last Taken 07/09/22] meloxicam 15 mg tablet 15 mg PO DAILY arthritis 04/12/22 [History Last Taken 04/10/22] rosuvastatin 20 mg tablet 20 mg PO QHS cholesterol 04/12/22 [History Last Taken 04/10/22] apixaban 5 mg tablet (Eliquis) 5 mg PO BID #60 tabs 05/11/22 [Rx Last Taken 07/05/22] metoprolol tartrate 25 mg tablet 25 mg PO BID #60 tabs 06/22/22 [Rx Last Taken 07/10/22] diltiazem HCl 120 mg capsule,24 hr,extended release 120 mg PO BID #180 caps 10/21/22 [Rx Last Taken Unknown] lisinopril 10 mg tablet 10 mg PO BID 11/02/22 [History Last Taken Unknown] Allergy/AdvReac Type Severity Reaction Status Date / Time Penicillins [PCN] Allergy Hives Verified 08/17/22 08:24 Family History Other CVA (cerebral vascular accident) Heart disease Surgical History Hx of cataract surgery Social History Smoking Status: Never smoker ROS ROS ED Constitutional Constitutional ED: Denies chills, fever(s) or sweats Eyes Eyes: Denies change in vision ENT ENT ED: Denies dysphagia or sore throat Cardiovascular Cardiovascular: Reports palpitations; Denies chest pain, leg edema or racing heartbeat Respiratory/Chest Respiratory/Chest: Denies cough, dyspnea or dyspnea on exertion Gastrointestinal Gastrointestinal: Denies abdominal pain, diarrhea, nausea or vomiting Genitourinary Genitourinary ED: Denies dysuria, hematuria or urinary frequency Musculoskeletal Musculoskeletal: Denies back pain, extremity pain or neck pain Integumentary Denies rash or wounds Neurologic Neurologic: Denies headache(s), paresthesias or weakness EXAM Physical Exam Const Vital Signs: 11/12/22 09:10 11/12/22 09:30 11/12/22 09:30 Temperature 97.0 F L Temperature Source Temporal Pulse Rate 140 H 108 H Pulse Rate [1 (Initial Baseline)] Pulse Rate [2] Pulse Rate [3] Respiratory Rate 18 12 Respiratory Rate [1 (Initial Baseline)] Respiratory Rate [2] Respiratory Rate [3] Respiratory Effort Normal Non-Labored Blood Pressure 139/98 H Blood Pressure [1 (Initial Baseline)] Blood Pressure [2] Blood Pressure Mean 111 Pulse Ox 98 94 Oxygen Delivery Method Room Air Room Air Oxygen Delivery Method [1 (Initial Baseline)] Oxygen Delivery Method [2] Oxygen Delivery Method [3] Oxygen Flow Rate (L/min) [2] Oxygen Flow Rate (L/min) [3] 11/12/22 10:25 11/12/22 11:22 11/12/22 11:30 Temperature 97.0 F L Temperature Source Pulse Rate 105 H Pulse Rate [1 (Initial Baseline)] 112 H Pulse Rate [2] 113 H Pulse Rate [3] 62 Respiratory Rate 16 Respiratory Rate [1 (Initial Baseline)] 17 Respiratory Rate [2] 19 H Respiratory Rate [3] 19 H Respiratory Effort Blood Pressure 129/89 H Blood Pressure [1 (Initial Baseline)] 126/81 H Blood Pressure [2] 115/81 H Blood Pressure Mean Pulse Ox 96 Oxygen Delivery Method Room Air Room Air Oxygen Delivery Method [1 (Initial Baseline)] Room Air Oxygen Delivery Method [2] Nasal Cannula Oxygen Delivery Method [3] Nasal Cannula Oxygen Flow Rate (L/min) [2] 2 Oxygen Flow Rate (L/min) [3] 2 11/12/22 11:35 11/12/22 11:40 11/12/22 11:45 Temperature Temperature Source Pulse Rate Pulse Rate [1 (Initial Baseline)] Pulse Rate [2] Pulse Rate [3] Respiratory Rate Respiratory Rate [1 (Initial Baseline)] Respiratory Rate [2] Respiratory Rate [3] Respiratory Effort Blood Pressure Blood Pressure [1 (Initial Baseline)] Blood Pressure [2] Blood Pressure Mean Pulse Ox Oxygen Delivery Method Room Air Room Air Room Air Oxygen Delivery Method [1 (Initial Baseline)] Oxygen Delivery Method [2] Oxygen Delivery Method [3] Oxygen Flow Rate (L/min) [2] Oxygen Flow Rate (L/min) [3] 11/12/22 12:29 Temperature Temperature Source Pulse Rate 67 Pulse Rate [1 (Initial Baseline)] Pulse Rate [2] Pulse Rate [3] Respiratory Rate 16 Respiratory Rate [1 (Initial Baseline)] Respiratory Rate [2] Respiratory Rate [3] Respiratory Effort Blood Pressure 120/72 Blood Pressure [1 (Initial Baseline)] Blood Pressure [2] Blood Pressure Mean Pulse Ox 97 Oxygen Delivery Method Oxygen Delivery Method [1 (Initial Baseline)] Oxygen Delivery Method [2] Oxygen Delivery Method [3] Oxygen Flow Rate (L/min) [2] Oxygen Flow Rate (L/min) [3] Positive well nourished and well developed General Appearance ED: well developed and NAD HEENT Reports moist mucous membranes normocephalic and atraumatic Eyes PERRL, EOMs intact bilaterally and conjunctivae normal General Eye ED: Yes normal appearance of both eyes Neck no lymphadenopathy and supple General: Negative for tenderness Chest Wall Chest: Negative for tenderness Resp normal respiratory effort and normal air movement Effort and Inspection: symmetric chest movement; Negative for respiratory distress Cardio no murmurs Rate: tachycardic Rhythm: abnormal rhythm Peripheral Pulses: pulses 2+ throughout GI normal to inspection, nondistended, normoactive bowel sounds and non-tender Palpation: Negative for guarding or rebound tenderness present Back/Spine no CVA tenderness and no thoracic nor lumbar tenderness Extremity normal to inspection General Extremety ED: Negative for edema or tenderness General Extremity: Negative for edema Neuro oriented x3 and no sensory deficits noted Sensorium / Orientation: awake and alert Skin no rashes or lesions noted and no wounds MDM MDM MDM Narrative Medical decision making narrative: Interventions / MDM: Differential diagnosis: Cardiac dysrhythmia, atrial fibrillation, atrial flutter Diagnosis considered but do not suspect: V-fib, V. tach My EKG interpretation: Atrial flutter rate of 123, repeat EKG after cardioversion normal sinus rhythm. Imaging independently reviewed and interpreted by myself: 1 view chest x-ray no acute process External documents reviewed: Previous EKG visits and heart cath reports. Test considered but not ordered:N/A ED course: Patient A-fib with RVR blood pressure stable he has been compliant with his Eliquis his last meal was last evening. Reported viral illness last week may have been reasons that provoked his A-fib this weekend. Occasional lightheaded symptoms. Labs were obtained and all stable chest x-ray negative for. I discussed with covering cardiology Dr. Loera, agrees with cardioversion in the ED as this is helped him in the past. This was performed with success with normal sinus rhythm on repeat EKG. He is asymptomatic he is awake and. 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 Re-evaluation: stable and improved Disposition discussed with patient/family/significant other: Patient and spouse Case discussed with consulting clinician: Flight Data Technician, Dr. Loera Procedure note: Written consent . Conscious sedation with direct-current cardioversion. Risk and benefits were discussed. Patient placed on a telemetry monitor, IV fluids, capnography, pulse oximeter, and oxygenation. Timeout was performed. ASA classification is 3 Mallampati 3. A-fib on the monitor. Given total of 60 mg of IV propofol. Patient achieved good sedation, 150 J of synchronized cardioversion performed noting back to sinus rhythm. Patient tolerated procedure well monitor improving symptoms. Back to baseline on reevaluation after monitoring. Lab Data Attestation: I reviewed the patient's lab results. Labs: Laboratory Results - last 24 hr 11/12/22 11/12/22 09:35 09:35 WBC 5.9 RBC 4.80 Hgb 13.1 Hct 44.1 MCV 91.9 MCH 27.3 MCHC 29.7 L RDW Std Deviation 55.4 H RDW Coeff of Maninder 16.3 H Plt Count 274 MPV 9.0 Immature Gran % (Auto) 0.700 Neut % (Auto) 59.1 Lymph % (Auto) 29.0 [place] % (Auto) 8.9 Eos % (Auto) 1.3 Baso % (Auto) 1.0 Absolute Neuts (auto) 3.5 Absolute Lymphs (auto) 1.72 Nucleated RBC % 0 Sodium 140 Potassium 4.1 Chloride 108 H Carbon Dioxide 25.0 Anion Gap 7 BUN 13 Creatinine 0.84 Estim Creat Clear Calc 105.21 Est GFR (MDRD) Af Amer 123 Est GFR (MDRD) Non-Af 102 BUN/Creatinine Ratio 15.4 Glucose 171 H Calcium 8.7 Magnesium 2.1 Radiography Diagnostic Testing: Clinical Impression(s) from Imaging Studies Chest X-Ray 11/12/22 09:55 IMPRESSION: Normal x-ray examination of the chest. Electronically Signed: Jas Parry MD at 10:15 EST , EKG Initial EKG: Attestation: I personally reviewed and interpreted this EKG as follows: Comments: A-fib rate of 123, no ST changes. PVCs x2 noted. Follow-up EKG: Attestation: I personally reviewed and interpreted this EKG as follows: Comments: At 1135: Normal sinus rhythm rate of 70, no ST or T wave changes. 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, History of conscious sedation Instructions: ED AFIB, ED Cardioversion, Electrical, ED Procedural Sedation, (Adult) Prescriptions: No Action metformin 500 MG tablet 500 mg PO QHS meclizine 25 MG tablet 25 mg PO Q8H PRN PRN (Reason: Dizziness) Qty: 20 0RF meloxicam 15 mg Tablet 15 mg PO DAILY rosuvastatin 20 mg Tablet 20 mg PO QHS Eliquis 5 mg tablet 5 mg PO BID Qty: 60 11RF metoprolol tartrate 25 mg tablet 25 mg PO BID Qty: 60 12RF diltiazem HCl 120 mg capsule,extended release 24 hr 120 mg PO BID Qty: 180 3RF lisinopril 10 mg tablet 10 mg PO BID Primary Care Provider: Dave Diaz Referrals: Dave Hebert MD [Med Staff - Active Staff] - 1 Week Dave Diaz MD [Primary Care Provider] - Activity Restrictions/Additional Instructions: Status post electrical cardioversion back to normal sinus rhythm. Continue your Eliquis at your Cardizem and metoprolol. Follow-up with Dr. Hebert. Return if any recurrent or worsening symptoms. Disposition Disposition: Home, Self Care Discharge Date/Time: 11/12/22 12:34
[2022-11-12 09:53] LABS: Absolute Lymphocyte Count 1.72 X10^3/uL (0.83-4.51); Absolute Neutrophil Count 3.5 X10^3/uL (2.0-7.7); Basophil# 0.06 X10^3/uL; Eosinophil# 0.08 X10^3/uL; Eosinophils% 1.3 % (0-5); Hematocrit 44.1 % (40-54); Hemoglobin 13.1 g/dL (13.0-16.5); Lymphocyte # 1.72 X10^3/ul (0.83-4.51); Mean Corp Hgb Conc 29.7 g/dL (32-36); Mean Corpuscular Hgb 27.3 pg (27.0-32.0); Mean Corpuscular Volume 91.9 fL (80-94); Monocyte# 0.53 X10^3/uL; Monocyte% 8.9 % (0-10); NRBC Flagged by Analyzer 0 % (0-5); Neutrophil # 3.51 X10^3/uL (2.7-7.7); Neutrophil % 59.1 % (47-70); Platelet Count 274 K/mm3 (150-450); RBC Distribution Width CV 16.3 % (11.6-14.6); RBC Distribution Width SD 55.4 fl (35.1-43.9); White Blood Count 5.9 K/mm3 (4.4-11.0)
--- NOTE | 2022-11-12 09:55 | RAD_ITS ---
STUDY: X-RAY CHEST REASON FOR EXAM: Male, 52 years old. Palpitations TECHNIQUE: Single AP portable view of the chest. COMPARISON: Comparison is made with prior study dated 06/19/2022. FINDINGS: EKG electrodes are seen. The lungs are clear and expanded. There is no demonstrated pleural abnormality. Normal size heart. Normal mediastinum and [place]. Normal visualized pulmonary arteries. Normal visualized aortic arch and descending thoracic aorta. Normal visualized thoracic spine. Normal visualized ribs, clavicles, and shoulders. There is no demonstrated abnormality of the visualized soft tissue structures of the upper abdomen. RAD/Chest 1 View (Portable) IMPRESSION: Normal x-ray examination of the chest. Electronically Signed: Jas Parry MD at 10:15 EST ,
[2022-11-12 10:06] LABS: Anion Gap 7 (5-15); BUN 13 mg/dL (7-18); BUN/Creat Ratio 15.4 RATIO (10-20); Calcium,Total 8.7 mg/dL (8.5-10.1); Chloride 108 mmol/L (98-107); Creatinine, Serum 0.84 mg/dL (0.70-1.30); EST Glomerular Filtration Rate 102 mL/min (>60); Est Glom Filt Rate - Afr Amer 123 mL/min (>60); Estimated Creatinine Clearance 105.21 ml/min; Glucose 171 mg/dL (74-106); Magnesium 2.1 mg/dL (1.6-2.6); Potassium 4.1 mmol/L (3.5-5.1); Sodium Level 140 mmol/L (136-145)
[2022-11-12] MEDS: Propofol 200 MG/20 ML Vial IV BOLUS (11:28)
--- NOTE | 2022-11-12 11:29 | EKG12_ITS ---
Test Reason : REPEAT Blood Pressure : / mmHG Vent. Rate : 070 BPM Atrial Rate : 070 BPM P-R Int : 164 ms QRS Dur : 096 ms QT Int : 396 ms P-R-T Axes : 050 018 007 degrees QTc Int : 427 ms Normal sinus rhythm Nonspecific T wave abnormality Abnormal ECG Confirmed by JAZIEL DEAN, CHARY ([id number]), avid editor GARRETT WRIGHT ([id number]) on 11/13/2022 8:32:52 AM Referred By: Confirmed By:CHARY SHERIFF MD
== END 2022-11-12 12:34 | disposition home or self-care (01) ==
PROVIDERS: Emergency Provider Emergency Medicine; PCP Family Medicine; Visit Provider Emergency Medicine
DX: I48.0 Paroxysmal atrial fibrillation (principal); E11.9 Type 2 diabetes mellitus without complications; I10 Essential (primary) hypertension; E78.5 Hyperlipidemia, unspecified; Z79.01 Long term (current) use of anticoagulants; Z79.84 Long term (current) use of oral hypoglycemic drugs; Z79.899 Other long term (current) drug therapy
CPT/HCPCS: 71045; 80048; 83735; 85025; 92960; 93005; 99284; J7030; A4216

== ENCOUNTER → 2023-01-22 | Outpatient (CLI) | payer BC, SELFPAY ==
[2023-01-22 13:47] LABS: Anion Gap 6 (5-15); BUN 25 mg/dL (7-18); BUN/Creat Ratio 24.8 RATIO (10-20); Calcium,Total 9.4 mg/dL (8.5-10.1); Chloride 106 mmol/L (98-107); Creatinine, Serum 1.01 mg/dL (0.70-1.30); EST Glomerular Filtration Rate 83 mL/min (>60); Est Glom Filt Rate - Afr Amer 100 mL/min (>60); Glucose 166 mg/dL (74-106); Potassium 4.1 mmol/L (3.5-5.1); Sodium Level 137 mmol/L (136-145)
== END | disposition home or self-care (01) ==
LOC: MTLAB 10:58
PROVIDERS: PCP Family Medicine; Referring Provider Physician Assistant Medical; Visit Provider Physician Assistant Medical
DX: I48.0 Paroxysmal atrial fibrillation (principal); R00.0 Tachycardia, unspecified
CPT/HCPCS: 36415; 80048

== ENCOUNTER → 2023-04-15 | Outpatient (CLI) | payer BC, SELFPAY ==
[2023-04-15 15:36] LABS: Absolute Lymphocyte Count 1.94 X10^3/uL (0.83-4.51); Absolute Neutrophil Count 4.2 X10^3/uL (2.0-7.7); Basophil# 0.05 X10^3/uL; Basophil% 0.7 % (0-1); Eosinophil# 0.08 X10^3/uL; Eosinophils% 1.2 % (0-5); Hematocrit 41.8 % (40-54); Lymphocyte # 1.94 X10^3/ul (0.83-4.51); Mean Corp Hgb Conc 31.1 g/dL (32-36); Mean Corpuscular Hgb 28.5 pg (27.0-32.0); Mean Corpuscular Volume 91.7 fL (80-94); Mean Platelet Vol. 9.6 fl (6.2-12.0); Monocyte# 0.61 X10^3/uL; Monocyte% 8.8 % (0-10); NRBC Flagged by Analyzer 0 % (0-5); Neutrophil # 4.21 X10^3/uL (2.7-7.7); Neutrophil % 60.9 % (47-70); Platelet Count 306 K/mm3 (150-450); RBC Distribution Width SD 53.4 fl (35.1-43.9); Red Blood Count 4.56 M/mm3 (4.6-6.2); White Blood Count 6.9 K/mm3 (4.4-11.0)
[2023-04-15 16:29] LABS: Anion Gap 2 (5-15); BUN 17 mg/dL (7-18); BUN/Creat Ratio 15.5 RATIO (10-20); Calcium,Total 9.1 mg/dL (8.5-10.1); Chloride 108 mmol/L (98-107); EST Glomerular Filtration Rate 75 mL/min (>60); Est Glom Filt Rate - Afr Amer 91 mL/min (>60); Glucose 141 mg/dL (74-106); Magnesium 1.9 mg/dL (1.6-2.6); Sodium Level 139 mmol/L (136-145)
== END | disposition home or self-care (01) ==
PROVIDERS: PCP Family Medicine; Referring Provider Physician Assistant Medical; Visit Provider Physician Assistant Medical
DX: R00.0 Tachycardia, unspecified (principal); I48.0 Paroxysmal atrial fibrillation
CPT/HCPCS: 36415; 80048; 83735; 84443; 85025

== ENCOUNTER → 2023-06-12 | Outpatient (CLI) | payer BC, SELFPAY ==
[2023-06-12 10:39] LABS: ALB/GLOB Ratio 0.9 RATIO (0.9-2.4); AST(SGOT) 27 U/L (15-37); Alanine Aminotransfer ALT/SGPT 45 U/L (16-61); Albumin, Serum 3.5 g/dL (3.2-5.0); Alkaline Phosphatase 54 U/L (45-117); Anion Gap 6 (5-15); BUN 16 mg/dL (7-18); BUN/Creat Ratio 15.8 RATIO (10-20); Calcium,Total 8.6 mg/dL (8.5-10.1); Chloride 108 mmol/L (98-107); Cholesterol 108 mg/dL (200); Creatinine, Serum 1.01 mg/dL (0.70-1.30); EST Glomerular Filtration Rate 83 mL/min (>60); Est Glom Filt Rate - Afr Amer 100 mL/min (>60); Globulin 3.7 g/dL (2.2-4.2); Glucose 132 mg/dL (74-106); High Density Lipoprotein 33 mg/dL; Protein, Total 7.2 g/dL (6.4-8.2); Sodium Level 139 mmol/L (136-145); Triglycerides 344 mg/dL; Very Low Density Lipoprotein 69 mg/dL (5-40)
[2023-06-12 10:44] LABS: Microalbumin,Random Urine 15.8 mg/L (NO RANGE EST.); Microalbumin:Creatinine Ratio 8.8 mg/g CRE (<30 mg/g CRE)
== END | disposition home or self-care (01) ==
PROVIDERS: PCP Family Medicine; Referring Provider Family Medicine; Visit Provider Family Medicine
DX: E11.9 Type 2 diabetes mellitus without complications (principal)
CPT/HCPCS: 36415; 80053; 80061; 82043; 82570

== ENCOUNTER → 2024-03-05 | Outpatient (CLI) | payer BC, SELFPAY ==
[2024-03-05 12:32] LABS: Microalbumin,Random Urine 34.7 mg/L (NO RANGE EST.); Microalbumin:Creatinine Ratio 16.2 mg/g CRE (<30 mg/g CRE)
[2024-03-05 13:22] LABS: ALB/GLOB Ratio 0.9 RATIO (0.9-2.4); AST(SGOT) 32 U/L (15-37); Alanine Aminotransfer ALT/SGPT 47 U/L (16-61); Albumin, Serum 3.7 g/dL (3.2-5.0); Alkaline Phosphatase 53 U/L (45-117); Anion Gap 8 (5-15); BUN 17 mg/dL (7-18); BUN/Creat Ratio 17.7 RATIO (10-20); Calcium,Total 9.7 mg/dL (8.5-10.1); Chloride 107 mmol/L (98-107); Cholesterol 120 mg/dL (200); Creatinine, Serum 0.96 mg/dL (0.70-1.30); EST Glomerular Filtration Rate 87 mL/min (>60); Est Glom Filt Rate - Afr Amer 106 mL/min (>60); Glucose 112 mg/dL (74-106); High Density Lipoprotein 42 mg/dL; Potassium 4.3 mmol/L (3.5-5.1); Protein, Total 7.7 g/dL (6.4-8.2); Sodium Level 139 mmol/L (136-145); Triglycerides 329 mg/dL; Very Low Density Lipoprotein 66 mg/dL (5-40)
== END | disposition home or self-care (01) ==
LOC: MFPLAB 10:32
PROVIDERS: PCP Family Medicine; Visit Provider Family Medicine
DX: E11.9 Type 2 diabetes mellitus without complications (principal)
CPT/HCPCS: 36415; 80053; 80061; 82043; 82570

== ENCOUNTER → 2024-09-09 | Outpatient (CLI) | payer BC, SELFPAY ==
[2024-09-09 11:08] LABS: Microalbumin,Random Urine 50.8 mg/L (NO RANGE EST.); Microalbumin:Creatinine Ratio 60.3 mg/g CRE (<30 mg/g CRE)
[2024-09-09 12:48] LABS: AST(SGOT) 27 U/L (15-37); Alanine Aminotransfer ALT/SGPT 43 U/L (16-61); Albumin, Serum 3.6 g/dL (3.2-5.0); Alkaline Phosphatase 51 U/L (45-117); Anion Gap 7 (5-15); BUN 11 mg/dL (7-18); BUN/Creat Ratio 13.1 RATIO (10-20); Calcium,Total 8.9 mg/dL (8.5-10.1); Chloride 107 mmol/L (98-107); Cholesterol 113 mg/dL (200); Creatinine, Serum 0.84 mg/dL (0.70-1.30); EST Glomerular Filtration Rate 102 mL/min (>60); Est Glom Filt Rate - Afr Amer 124 mL/min (>60); Globulin 3.7 g/dL (2.2-4.2); Glucose 123 mg/dL (74-106); High Density Lipoprotein 47 mg/dL; Potassium 3.8 mmol/L (3.5-5.1); Protein, Total 7.3 g/dL (6.4-8.2); Sodium Level 141 mmol/L (136-145); Triglycerides 166 mg/dL; Very Low Density Lipoprotein 33 mg/dL (5-40)
== END | disposition home or self-care (01) ==
LOC: MFPLAB 09:02
PROVIDERS: PCP Family Medicine; Referring Provider Family Medicine; Visit Provider Family Medicine
DX: E11.9 Type 2 diabetes mellitus without complications (principal)
CPT/HCPCS: 36415; 80053; 80061; 82043; 82570

== ENCOUNTER → 2025-03-10 | Outpatient (CLI) | payer BC, SELFPAY ==
[2025-03-10 10:41] LABS: ALB/GLOB Ratio 1.3 RATIO (0.9-2.4); AST(SGOT) 30 U/L (<=37); Alanine Aminotransfer ALT/SGPT 31 U/L (<=46); Albumin, Serum 4.1 g/dL (3.5-5.0); Alkaline Phosphatase 52 U/L (40-129); Anion Gap 11 (5-15); BUN 16 mg/dL (4-19); BUN/Creat Ratio 17.2 RATIO (10-20); Calcium,Total 9.5 mg/dL (7.6-11.0); Carbon Dioxide 25.4 mmol/L (21.0-32.0); Chloride 104 mmol/L (98-108); Cholesterol 105 mg/dL (<=200); Creatinine, Serum 0.91 mg/dL (0.70-1.20); EST Glomerular Filtration Rate 101 (>60); Globulin 3.1 g/dL (2.2-4.2); Glucose 120 mg/dL (70-99); High Density Lipoprotein 39 mg/dL; Low Density Lipoprotein Calc. 27 mg/dL; Potassium 4.2 mmol/L (3.3-5.1); Protein, Total 7.3 g/dL (5.9-8.4); Sodium Level 141 mmol/L (133-145); Total Bilirubin 0.62 mg/dL (0.00-1.30); Triglycerides 194 mg/dL; Very Low Density Lipoprotein 39 mg/dL (5-40); cholesterol:hdl ratio screen 2.68
[2025-03-10 11:15] LABS: Microalbumin:Creatinine Ratio 76.9 mg/g CRE
== END | disposition home or self-care (01) ==
LOC: MFPLAB 08:38
PROVIDERS: PCP Family Medicine; Referring Provider Family Medicine; Visit Provider Family Medicine
DX: I10 Essential (primary) hypertension (principal)
CPT/HCPCS: 36415; 80053; 80061; 82043; 82570